=== PATIENT | male | born 1960 | race Caucasian/White ===

== ENCOUNTER 2020-09-27 07:30 | Outpatient (REF) | payer OTHER, SELFPAY ==
[2020-09-27 10:08] LABS: Appearance Urine CLEAR; Color Urine YELLOW; Glucose Urine UA NEG (NEG); Leukocyte Esterase Urine NEG (NEG); Nitrite Urine NEG (NEG); Specific Gravity - Urine 1.015 (1.005-1.025); Urine Blood NEG (NEG); Urine Ketones NEG (NEG); Urine Protein NEG (NEG-TRACE)
[2020-09-27 10:34] LABS: Anion Gap 12 (12-20); Blood Urea Nitrogen 17 mg/dL (9-16); Calcium 9.4 mg/dL (8.4-10.2); Carbon Dioxide 25 mmol/L (22-29); Chloride 107 mmol/L (96-108); Estimated Glomerular Filt Rate 60; Sodium 140 mmol/L (135-145); Uric Acid 6.9 mg/dL (3.4-7.0)
== END 2020-09-27 07:31 | disposition home or self-care (01) ==
LOC: HO.10HDL 07:30
PROVIDERS: PCP Pediatrics; Visit Provider Internal Medicine Hypertension Specialist
DX: N20.0 Calculus of kidney (principal); I10 Essential (primary) hypertension
CPT/HCPCS: 36415; 80051; 81003; 82310; 82565; 84520; 84550

== ENCOUNTER 2021-09-08 08:10 | Outpatient (REF) | payer OTHER, SELFPAY ==
[2021-09-08 12:21] LABS: Anion Gap 11 (12-20); Blood Urea Nitrogen 15 mg/dL (9-16); Carbon Dioxide 24 mmol/L (22-29); Chloride 107 mmol/L (96-108); Creatinine Urine 121.27 mg/dL; Estimated Glomerular Filt Rate > 60; Glucose Random 116 mg/dL (60-115); Potassium 3.9 mmol/L (3.3-5.1); Sodium 138 mmol/L (135-145); Total Protein Urine Random < 7 mg/dL (<12)
[2021-09-08 12:31] LABS: Uric Acid 6.4 mg/dL (3.4-7.0)
== END 2021-09-08 08:11 | disposition home or self-care (01) ==
LOC: HO.WFDLDS 08:10
PROVIDERS: Visit Provider Internal Medicine Hypertension Specialist
DX: I10 Essential (primary) hypertension (principal)
CPT/HCPCS: 36415; 80048; 84156; 84550

== ENCOUNTER 2021-10-06 | Outpatient (REF) | payer OTHER, SELFPAY | END 2021-10-06 00:01 | disposition home or self-care (01) | LOC: HO.LNP | PROVIDERS: Visit Provider Internal Medicine Hypertension Specialist | DX: N20.0 Calculus of kidney (principal) | CPT/HCPCS: 88300 ==

== ENCOUNTER 2022-01-09 | Outpatient (REF) | payer OTHER, SELFPAY ==
[2022-01-13 21:01] LABS: Stone Source RENAL STONE
== END 2022-01-09 00:01 | disposition home or self-care (01) ==
LOC: HO.LNP
PROVIDERS: Visit Provider Internal Medicine Hypertension Specialist
DX: N20.0 Calculus of kidney (principal)
CPT/HCPCS: 82365

== ENCOUNTER 2022-03-09 09:29 | Outpatient (REF) | payer OTHER, SELFPAY ==
--- NOTE | ~2022-03-09 | US_ITS ---
EXAMINATION: US RETROPERITONEAL LIMITED (RENAL ONLY) CLINICAL INFORMATION: Renal stone. COMPARISON: Renal ultrasound 12/22/2013. TECHNIQUE: Real-time imaging of the kidneys. FINDINGS: RIGHT KIDNEY: 11.5 x 3.9 x 6.0 cm (SAG x AP x TRV). The kidney is normal in size, contour, and echogenicity. Renal cortical thickness is normal. Small 2 and 3 mm stones in the mid and lower pole. Small 3 x 4 mm cyst exophytic to the midpole. No hydronephrosis. LEFT KIDNEY: 11.5 x 4.6 x 4.3 cm (SAG x AP x TRV). The kidney is normal in size, contour, and echogenicity. Renal cortical thickness is normal. Small 0.8 x 0.6 x 0.5 cm peripelvic cyst in the midpole. No renal calculi or hydronephrosis. US/US renal BI IMPRESSION: Small right renal stones. Small bilateral renal cysts.
== END 2022-03-09 09:30 | disposition home or self-care (01) ==
LOC: HO.US 09:29
PROVIDERS: Visit Provider Internal Medicine Hypertension Specialist
DX: N20.0 Calculus of kidney (principal)
CPT/HCPCS: 76775

== ENCOUNTER → 2022-05-07 14:37 | Outpatient (BNVA) | payer OTHER, SELFPAY | PROVIDERS: PCP Family Medicine; Visit Provider Surgery | DX: K60.3 Anal fistula (principal); K64.8 Other hemorrhoids | CPT/HCPCS: 46600 ==

== ENCOUNTER → 2022-06-01 11:02 | Outpatient (BNVA) | payer OTHER, SELFPAY | PROVIDERS: PCP Family Medicine; Visit Provider Internal Medicine Cardiovascular Disease | DX: Z13.89 Encounter for screening for other disorder (principal) ==

== ENCOUNTER 2022-06-29 06:00 | Day surgery (SDC) | payer OTHER, SELFPAY ==
[2022-05-21 12:28] VITALS: BMI 28.7
--- NOTE | 2022-05-22 | ECG_ITS ---
Test Reason : pre-op Blood Pressure : / mmHG Vent. Rate : 071 BPM Atrial Rate : 071 BPM P-R Int : 138 ms QRS Dur : 140 ms QT Int : 416 ms P-R-T Axes : 038 -44 021 degrees QTc Int : 452 ms Normal sinus rhythm Left axis deviation Right bundle branch block Cannot rule out inferior infarct Abnormal ECG When compared with ECG of 17-MAR-2003 08:23, Premature atrial complexes are no longer Present inferior infarct present Referred By: Dereje Arreola Electronically Signed By:Mode Hardin
[2022-05-22 10:49] LABS: Mean Corpuscular HGB Conc 35.6 g/dl (31.0-36.0); Mean Corpuscular Hemoglobin 32.7 pg (27.0-33.0); Mean Corpuscular Volume 91.8 fL (80.0-98.0); Mean Platelet Volume 10.6 fL (9.4-12.4); Platelet Count 163 X10*3/uL (160-400); Red Cell Distribution Width 11.8 % (11.0-16.0); White Blood Count 5.9 X10*3/uL (4.8-10.8)
[2022-05-22 11:26] LABS: Alanine Aminotransferase 61 U/L (0-40); Albumin Level 4.3 g/dL (3.5-5.0); Alkaline Phosphatase 88 U/L (39-117); Anion Gap 13 (12-20); Aspartate Amino Transferase 39 U/L (5-37); Bilirubin Total 0.7 mg/dL (0.0-1.0); Blood Urea Nitrogen 18 mg/dL (9-16); Calcium 9.6 mg/dL (8.4-10.2); Carbon Dioxide 25 mmol/L (22-29); Chloride 106 mmol/L (96-108); Cholesterol 217 mg/dL; Creatinine Clr Calc Pharmacy 72.8; Estimated Glomerular Filt Rate > 60; Glucose Fasting 109 mg/dL (60-99); HDL Cholesterol 38 mg/dL; LDL Cholesterol Calculated 129 mg/dl; Potassium 4.2 mmol/L (3.3-5.1); Sodium 140 mmol/L (135-145); Total Protein 7.7 g/dL (6.5-8.0); Triglycerides 250 mg/dL
[2022-05-22 11:27] LABS: Anion Gap 13 (12-20); Blood Urea Nitrogen 17 mg/dL (9-16); Calcium 9.6 mg/dL (8.4-10.2); Carbon Dioxide 24 mmol/L (22-29); Chloride 106 mmol/L (96-108); Creatinine Clr Calc Pharmacy 74.1; Estimated Glomerular Filt Rate > 60; Glucose Random 110 mg/dL (60-115); Potassium 4.2 mmol/L (3.3-5.1); Sodium 139 mmol/L (135-145)
[2022-05-22 11:45] LABS: Appearance Urine Clear; Color Urine Yellow; Glucose Urine UA Negative (Negative); Leukocyte Esterase Urine Negative (Negative); Nitrite Urine Negative (Negative); Prostate Specific Antigen Scr 2.05 ng/mL (<0.05-4.0); Specific Gravity - Urine 1.015 (1.005-1.025); TSH reflex Free T4 1.56 uIU/mL (0.32-4.0); Urine Blood Negative (Negative); Urine Ketones Negative (Negative); Urine Protein Negative (Neg-Trace)
[2022-05-22 13:34] LABS: Creatinine Urine 107.94 mg/dL; Microalbum/Creatinine Ratio Ur 42.6 ug/mg cr
--- NOTE | 2022-06-28 09:18 | P.CONAN_ITS ---
Documented by User: Nichelle Penn NP 06/28/22 13:13 HPI - Anesthesia Eval Consult details Narrative: 62yo M for Hemorrhoidectomy, Exam Under Anesthesia Cardiac optimized for procedure. ECHO and Stress pending for new RBBB. Case reviewed with Dr Arreola. [facility] Active Problems Active Problems: All Active Problems (Updated 05/30/22 @ 13:43 by Primo Delacruz MD) Abnormal ECG (Acute) Right bundle branch block (Acute) Preoperative clearance (Acute) Normal physical examination, routine (Acute) Thrombosed hemorrhoids (Acute) Hemorrhoids with complication (Acute) Anal fistula (Acute) Gout (Acute) Kidney stones (Acute) HTN (hypertension) (Acute) Past Medical History Medical History Anal fistula Anxiety Gout Hemorrhoids with complication HTN (hypertension) Hx of degenerative disc disease Kidney stones Surgical History Surgical History History of back surgery Hx of colonoscopy Hx of lithotripsy Social History Social History Housing: House Are you a primary childcare attendant to a significant other at home: No Do you presently have visiting nurse or other home services: No Patient Tobacco Use Status: Never used Tobacco e-Cigarette/Vaping Use: Never Used Second Hand Smoke Exposure: No Use of substances other than those prescribed or required for medical reasons: No Have you been hit, kicked, punched, or otherwise hurt by someone within the past year? If so, by whom?: No Are you DNR?: No Advance Directives: No Advance Directives Information Provided: Yes Advance Directives on File: No Recently lost weight without trying: No Nutrition Risks: No Nutritional Risk Poor oral hygiene: No Current occupational status: retired Current occupational exposures/hazards: No Cognitive needs: No Hearing needs: No Vision needs: No Meds Allergies Allergy/AdvReac Type Severity Reaction Status Date / Time No Known Allergies Allergy Verified 06/01/22 11:35 Home Medications Medication Instructions Recorded Confirmed Last Taken Type allopurinol 100 mg tablet 100 mg PO DAILY 12/28/21 06/01/22 06/28/22 21:00 History amlodipine 5 mg-benazepril 10 mg 1 cap PO DAILY 0906/01/22 06/28/22 21:00 History capsule Exam Exam Date and Time: June 28, 2022 0918 Height,Weight and Vital Signs: Height 5 ft 10 in Weight 90.718 kg Pertinent Lab Results Pertinent Lab Results: Laboratory Tests 05/22/22 05/22/22 05/22/22 10:30 10:30 10:30 WBC 5.9 RBC 4.90 Hgb 16.0 Hct 45.0 MCV 91.8 MCH 32.7 MCHC 35.6 RDW 11.8 Plt Count 163 MPV 10.6 Absolute Nucleated RBC 0.000 Nucleated RBC % (auto) 0.0 Sodium 139 Potassium 4.2 Chloride 106 Carbon Dioxide 24 Anion Gap 13 BUN 17 H Creatinine 1.14 Estim Creat Clear Calc 74.1 Estimated GFR > 60 Random Glucose 110 Fasting Glucose Uric Acid Calcium 9.6 D Total Bilirubin AST ALT Alkaline Phosphatase Total Protein Albumin Triglycerides Cholesterol LDL Cholesterol, Calc HDL Cholesterol PSA Screen TSH Urine Color Yellow Urine Appearance Clear Urine pH 6.0 Ur Specific [place] 1.015 Urine Protein Negative Urine Glucose (UA) Negative Urine Ketones Negative Urine Blood Negative Urine Nitrite Negative Ur Leukocyte Esterase Negative Urine Creatinine Urine Microalbumin Microalb/Creat Ratio 05/22/22 05/22/22 10:30 10:30 WBC RBC Hgb Hct MCV MCH MCHC RDW Plt Count MPV Absolute Nucleated RBC Nucleated RBC % (auto) Sodium 140 Potassium 4.2 Chloride 106 Carbon Dioxide 25 Anion Gap 13 BUN 18 H Creatinine 1.16 Estim Creat Clear Calc 72.8 Estimated GFR > 60 Random Glucose Fasting Glucose 109 H Uric Acid 6.0 Calcium 9.6 Total Bilirubin 0.7 AST 39 H ALT 61 H Alkaline Phosphatase 88 Total Protein 7.7 Albumin 4.3 Triglycerides 250 Cholesterol 217 LDL Cholesterol, Calc 129 HDL Cholesterol 38 PSA Screen 2.05 TSH 1.56 Urine Color Urine Appearance Urine pH Ur Specific [place] Urine Protein Urine Glucose (UA) Urine Ketones Urine Blood Urine Nitrite Ur Leukocyte Esterase Urine Creatinine 107.94 Urine Microalbumin 46.0 Microalb/Creat Ratio 42.6 Narrative Narrative: EKG 05/2022 Vent. Rate : 071 BPM ? ? Atrial Rate : 071 BPM ?? P-R Int : 138 ms? QRS Dur : 140 ms ? ? QT Int : 416 ms ? ? ? P-R-T Axes : 038 -44 021 degrees ?? QTc Int : 452 ms ? Normal sinus rhythm Left axis deviation Right bundle branch block Cannot rule out inferior infarct Abnormal ECG When compared with ECG of 17-MAR-2003 08:23, Premature atrial complexes are no longer Present inferior infarct present Assessment and Plan Assessment Anesthesia Assessment: Chart Reviewed Documented by User: Nitin Woods MD 06/29/22 08:21 PMFSH Past Medical History Medical History Anal fistula Anxiety Gout Hemorrhoids with complication HTN (hypertension) Hx of degenerative disc disease Kidney stones Family History Family history of problems with anesthesia: No Surgical History Surgical History History of back surgery Hx of colonoscopy Hx of lithotripsy History of Problems with Anesthesia: No Social History Social History Housing: House Are you a primary childcare attendant to a significant other at home: No Do you presently have visiting nurse or other home services: No Patient Tobacco Use Status: Never used Tobacco e-Cigarette/Vaping Use: Never Used Second Hand Smoke Exposure: No Use of substances other than those prescribed or required for medical reasons: No Have you been hit, kicked, punched, or otherwise hurt by someone within the past year? If so, by whom?: No Are you DNR?: No Advance Directives: No Advance Directives Information Provided: Yes Advance Directives on File: No Recently lost weight without trying: No Nutrition Risks: No Nutritional Risk Poor oral hygiene: No Current occupational status: retired Current occupational exposures/hazards: No Cognitive needs: No Hearing needs: No Vision needs: No Meds Allergies Allergy/AdvReac Type Severity Reaction Status Date / Time No Known Allergies Allergy Verified 06/01/22 11:35 Home Medications Medication Instructions Recorded Confirmed Last Taken Type allopurinol 100 mg tablet 100 mg PO DAILY 12/28/21 06/01/22 06/28/22 21:00 History amlodipine 5 mg-benazepril 10 mg 1 cap PO DAILY 12/28/21 06/01/22 06/28/22 21:00 History capsule Exam Airway Mallampati Class: II TM Dist: >3cm Neck ROM: Full Heart: rrr Lungs: cta Assessment and Plan Assessment Anesthesia Assessment: Anesthesia Plan Discussed and Chart Reviewed Final Anesthetic Review Family History of Problems with Anesthesia: No History of Problems with Anesthesia: No NPO: Yes ASA Class: II Final Preanesthetic Review: No Changes in Pt Med Stat, Meds/Allgs Chart Reviewed and Consent Obtained/Reviewed Patient Risk: Intermediate Procedure Risk: Intermediate Anesthetic Plan Anesthetic Plan: GA Disposition: Standard PACU
[2022-06-29] VITALS (9 sets, daily range): BP systolic 128–175; BP diastolic 82–107; PULSE 58–72; RESP 14–19; TEMP 36.1–36.6; O2SAT 96–100
[2022-06-29] MEDS: Lactated Ringers 1,000 ML 100 ML IVCONT (06:38)
--- NOTE | 2022-06-29 08:18 | P.HPSUR_ITS ---
Pre-Procedural Eval Section A Date of Service: 06/29/22 Section B Chief Complaint: Anal fistula,Other hemorrhoids Details of Present Illness: Has had some drainage, and pain for several months now the perianal area Relevant Family History (Specify if Yes): No Relevant Social History: None Present Medications: see Short Stay Collaborative assessment Medical History: Significant History ( history of kidney stones, gout, hypertension) Allergies: Allergies Allergy/AdvReac Type Severity Reaction Status Date / Time No Known Allergies Allergy Verified 06/01/22 11:35 Review of Systems Sugical H&P ROS: Negative: Constitution, Cardiovascular, Respiratory, Lisbet rological, Psychiatric, Hem-Onc, Allergic/Immunologic, Gastrointestinal, Genitourinary, Musculoskeletal, Integumentary, Endocrine and Eyes/Ears/Nose/Throat Exam Surgical H&P Exam: Normal: HEENT, Normal: Heart, Normal: Lungs, Normal: Extremities, Normal: Abdomen, Normal: Skin and Normal: Neurological Exam Comment: questions sinus on the left perianal area also with hemorrhoids, internal and external Plan Diagnosis/Plan: Unchanged I have reviewed the history and physical and performed a pertinent physical examination on my patient. No changes have occurred unless specified. Time Spent With Patient Time: Total time managing care of this patient today ____ minutes.
--- NOTE | 2022-06-29 09:56 | W.PM.OPN ---
Operative Note Operative Note Date of Service: 06/29/22 Narrative: Ppreop diagnosis: Internal external hemorrhoids, anal fistula Postop diagnose: The same Procedure: Exam under anesthesia, placement of seton and hemorrhoidectomy x2 columns surgeon: Ranjan Delarosa MD project construction assistant manager: RANDOLPH Garcia student The patient is a 62-year-old male was had hemorrhoids which she says that been increasingly become more uncomfortable. However, he also dated that recently had been noticing some pain and drainage on the perianal area. Examination in the office revealed hemorrhoidal columns, mix of internal external along with what appeared to be an induration on the left anterior perianal area suggestive of a fistula. He understood the technique of a hemorrhoidectomy and seton placement. He was aware of the risks, benefits, and alternatives. He was brought to the operating room. He was placed in prone jaimee-knife position. The buttocks were retracted with wide tape laterally. The perianal area was prepped draped in thebusual sterile fashion. A surgical time-out was done. The patient received Cefotan 2 g IV preoperatively. I infiltrated the perianal area with lidocaine 1%. Examination of the anal orifice revealed an induration on the left anterior perianal area. There was note of a palpable cord-like induration extending into the anal canal radially. I inserted the Rafi Vega retractor and examined the anal canal circumferentially. There was note of some redness on 1 area of the dentate line radial to the induration on the perianal area and this suggested an internal fistulous opening. there was also note of hemorrhoidal columns, mix of internal and external what appeared to be bulky on the left and right side . I started to apply up probe through the external fistulous opening. I gently passed this until I was able to pass it all way to the internal sinus along the dentate line. I passed a yellow vessel loop as a seton. This was looped around the fistula tract and the loop was closed with a silk 2 0 tie . I then proceeded to do his hemorrhoidectomy. I applied a Sam grasper at the hemorrhoidal column the left to retract this. I made a figure of 8 stitch at the pedicle using a chromic 3-0. I made an incision around this hemorrhoidal column to the perianal skin using a blade 15. I excised this hemorrhoidal column above the plane of the sphincters using Metzenbaum scissors. I closed this incision with a running chromic 3-0 stitch with additional hemostatic security sutures being placed. The same procedure was duplicated on the hemorrhoidal column on the right side. Again this was retracted with a Sam grasper. I made a [id number] stitch at the pedicle. I made an incision around this hemorrhoidal column the perianal skin using blade 15. I excised this with scissors above the plane of sphincters. The incision was closed with a running chromic 3- stitch with additional hemostatic sutures being placed. Once hemostasis was confirmed, I infiltrated the perianal area with Marcaine 0.5% but for postop DILLON. I vision a rolled Gelfoam into the anal canal. The procedure was then completed The patient tolerated procedure well. There were no immediate complications. Initial and final counts of sponges and instruments were correct. Estimated blood loss was about 25 cc. The patient was extubated without difficulty and transferred to recovery room with stable vital signs
== END 2022-06-29 11:40 | disposition home or self-care (01) ==
PROVIDERS: Anesthesiology; PCP Family Medicine; Visit Provider Surgery
PROC: (CPT 46020; principal; 2022-06-29 08:30)
PROC: (CPT 46020; 2022-06-29 08:30)
DX: K60.3 Anal fistula (principal); K64.8 Other hemorrhoids; K64.4 Residual hemorrhoidal skin tags; I10 Essential (primary) hypertension; M10.9 Gout, unspecified; Z79.899 Other long term (current) drug therapy; Z87.442 Personal history of urinary calculi
CPT/HCPCS: 46020; 46260; 36415; 80048; 80053; 80061; 81003; 82043; 84153; 84443; 84550; 85027; 88304; 93005; J0131; J1100; J1885; J2405; J2795

== ENCOUNTER 2022-06-30 14:17 | Emergency (ER) | payer OTHER, SELFPAY ==
--- NOTE | 2022-06-30 14:27 | ED_ITS ---
HPI - General Adult General Chief complaint: Urogenital-Male <RANDOLPH Kowalski - Last Filed: 06/30/22 14:35> Stated complaint: surgery yesterday, diff urinating <RANDOLPH Kowalski - Last Filed: 06/30/22 14:35> Time Seen by Provider: 06/30/22 14:46 <RANDOLPH Kowalski - Last Filed: 06/30/22 14:35> Source: patient and family <Tahmina Lou NP - Last Filed: 06/30/22 16:16> Mode of arrival: ambulatory <Tahmina Lou NP - Last Filed: 06/30/22 16:16> Limitations: no limitations <Tahmina Lou NP - Last Filed: 06/30/22 16:16> History of Present Illness HPI narrative: 62 yo male who is post-op day 1 after having a placement of seton/hemorrhoidectomy x2 by Dr Delarosa with inability to urinate. Feels the need to void but cannot. Last time he voided was 6am. <Tahmina Lou NP - Last Filed: 06/30/22 16:16> Related Data Home medications: Home Medications Medication Instructions Recorded Confirmed allopurinol 100 mg tablet 100 mg PO DAILY 12/28/21 06/01/22 amlodipine 5 mg-benazepril 10 mg 1 cap PO DAILY 12/28/21 06/01/22 capsule Previous Rx's Medication Instructions Recorded docusate sodium 100 mg capsule 100 mg PO BID #60 caps 06/29/22 (Colace) ibuprofen 600 mg tablet 600 mg PO Q6H PRN pain #30 tabs 06/29/22 oxycodone-acetaminophen 5 mg-325 1 tab PO Q4-6H PRN pain #30 tabs 06/29/22 mg tablet (Percocet) tamsulosin 0.4 mg capsule (Flomax) 0.4 mg PO DAILY #30 caps 06/30/22 <RANDOLPH Kowalski - Last Filed: 06/30/22 14:35> Allergies/adverse reactions: Allergies Allergy/AdvReac Type Severity Reaction Status Date / Time No Known Allergies Allergy Verified 06/01/22 11:35 <RANDOLPH Kowalski - Last Filed: 06/30/22 14:35> Review of Systems Review of Systems: Yes all other systems are reviewed and are negative <Tahmina Lou NP - Last Filed: 06/30/22 16:16> Constitutional: Constitutional: Reports no additional constitutional complaints, Denies body ache(s), Denies chills, Denies fever(s), Denies headache(s) and Denies weakness <Tahmina Lou RAILWAY TRACK WORKER - Last Filed: 06/30/22 16:16> Eyes: Eyes: Reports no additional eye complaints and Denies change in vision <Tahmina Lou RAILWAY TRACK WORKER - Last Filed: 06/30/22 16:16> ENT: Reports system reviewed and no additional complaints, except as documented, Denies dizziness, Denies headache(s), Denies nasal congestion, Denies nasal discharge and Denies neck pain <Tahmina Lou NP - Last Filed: 06/30/22 16:16> Cardiovascular: Cardiovascular: Reports no additional cardiovascular complaints, Denies chest pain, Denies leg edema and Denies dyspnea <Tahmina Lou RAILWAY TRACK WORKER - Last Filed: 06/30/22 16:16> Respiratory: Respiratory: Reports no additional respiratory complaints, Denies cough and Denies dyspnea <Tahmina Lou NP - Last Filed: 06/30/22 16:16> Gastrointestinal: Gastrointestinal: Reports no additional gastrointestinal complaints, Denies abdominal pain, Denies diarrhea, Denies nausea and Denies vomiting <Tahmina Lou NP - Last Filed: 06/30/22 16:16> Genitourinary: Genitourinary: Reports difficulty urinating and Denies urinary incontinence <Tahmina Lou RAILWAY TRACK WORKER - Last Filed: 06/30/22 16:16> Musculoskeletal: Musculoskeletal: Reports no additional musculoskeletal complaints, Denies back pain, Denies arthralgias, Denies joint swelling, Denies neck pain, Denies numbness and Denies tingling <Tahmina Lou NP - Last Filed: 06/30/22 16:16> Integumentary/Breasts: Skin/Breast: Reports system reviewed and no additional complaints, except as docu and Denies rash <Tahmina Lou NP - Last Filed: 06/30/22 16:16> Neurologic: Reports system reviewed and no additional complaints, except as documented, Denies dizziness, Denies headache(s), Denies numbness, Denies tingling and Denies weakness <Tahmina Lou NP - Last Filed: 06/30/22 16:16> PMFSH Past Medical History Attestation statement: The following information was validated with the patient. <Tahmina Lou NP - Last Filed: 06/30/22 16:16> Source: old records reviewed and nursing notes reviewed <Tahmina Lou NP - Last Filed: 06/30/22 16:16> Medical History: Medical History Anal fistula Anxiety Gout Hemorrhoids with complication HTN (hypertension) Hx of degenerative disc disease Kidney stones <RANDOLPH Kowalski - Last Filed: 06/30/22 14:35> Surgical History: Surgical History History of back surgery Hx of colonoscopy Hx of lithotripsy <RANDOLPH Kowalski - Last Filed: 06/30/22 14:35> Social History Social History: Social History Housing: House Are you a primary healthcare advisory services manager to a significant other at home: No Do you presently have visiting nurse or other home services: No Alcohol intake: never Patient Tobacco Use Status: Never used Tobacco Smoked in Last 30 Days: No e-Cigarette/Vaping Use: Never Used Second Hand Smoke Exposure: No Use of substances other than those prescribed or required for medical reasons: No Advance Directives: No Advance Directives Information Provided: Yes Current occupational status: retired Current occupational exposures/hazards: No Cognitive needs: No Hearing needs: No Vision needs: No <RANDOLPH Kowalski - Last Filed: 06/30/22 14:35> Physical Exam ED Vital Signs: Vital Signs - 24 hr 06/30/22 14:34 Temperature 97.9 F Pulse Rate 76 Respiratory Rate 18 Pulse Oximetry 100 Oxygen Delivery Method Room Air BMI result Body Mass Index 28.7 <Roberta Velazcoiot, PA - Last Filed: 06/30/22 14:35> Vital Signs - 24 hr 06/30/22 14:34 Temperature 97.9 F Pulse Rate 76 Respiratory Rate 18 Pulse Oximetry 100 Oxygen Delivery Method Room Air BMI result Body Mass Index 28.7 <Tahmina Lou NP - Last Filed: 06/30/22 16:16> Const Other: In pain <Tahmina Lou NP - Last Filed: 06/30/22 16:16> General: alert <Tahmina Lou RAILWAY TRACK WORKER - Last Filed: 06/30/22 16:16> Orientation/consciousness: patient oriented x3 <Tahmina Lou NP - Last Filed: 06/30/22 16:16> Limitations: no limitations <Tahmina Lou RAILWAY TRACK WORKER - Last Filed: 06/30/22 16:16> HENMT Head: Yes normal to inspection <Tahmina Lou NP - Last Filed: 06/30/22 16:16> Ears: hearing grossly normal bilaterally <Tahmina Lou RAILWAY TRACK WORKER - Last Filed: 06/30/22 16:16> Eyes General: appearance normal, both eyes and all related structures <Tahmina Lou NP - Last Filed: 06/30/22 16:16> Pupils: Equal, round and reactive pupils present <Tahmina Lou NP - Last Filed: 06/30/22 16:16> Neck Neck: Yes normal visual inspection and Yes full ROM <Tahmina Lou NP - Last Filed: 06/30/22 16:16> Chest Chest palpation & inspection: normal inspection of the chest <Tahmina Lou NP - Last Filed: 06/30/22 16:16> Resp Effort & Inspection: normal respiratory effort <Tahmina Lou NP - Last Filed: 06/30/22 16:16> Auscultation: clear to auscultation bilaterally <Tahmina Lou NP - Last Filed: 06/30/22 16:16> Cardio Rate: regular rate <Tahmina Lou NP - Last Filed: 06/30/22 16:16> Rhythm: regular rhythm <Tahmina Berryrita, RAILWAY TRACK WORKER - Last Filed: 06/30/22 16:16> Peripheral pulses: Peripheral pulses 2+ throughout <Tahmina Ulisesvaldo, RAILWAY TRACK WORKER - Last Filed: 06/30/22 16:16> GI Other: Bladder is distended <Tahminageovany Lou, RAILWAY TRACK WORKER - Last Filed: 06/30/22 16:16> Inspection: Yes normal to inspection <Tahminageovany Lou, RAILWAY TRACK WORKER - Last Filed: 06/30/22 16: 16> General: Yes no CVA tenderness <Tahmina Ulisesvaldo, RAILWAY TRACK WORKER - Last Filed: 06/30/22 16:16> Back/Spine/Pelvis Back: no CVA tenderness <Tahmina Dasha, RAILWAY TRACK WORKER - Last Filed: 06/30/22 16:16> Thoracic/Lumbar Spine: thoracic and lumbar spine normal to inspection <Tahminageovany Lou, RAILWAY TRACK WORKER - Last Filed: 06/30/22 16:16> Skin General skin exam: no rashes or lesions noted <Tahmina Ulisesvaldo, RAILWAY TRACK WORKER - Last Filed: 06/30/22 16:16> Neuro General: patient oriented x3 and moves all extremities <Tahminageovany Lou, RAILWAY TRACK WORKER - Last Filed: 06/30/22 16:16> Cranial nerves: Yes Equal, round and reactive pupils present <Tahmina Ulisesvaldo, RAILWAY TRACK WORKER - Last Filed: 06/30/22 16:16> Cognition (Neuro): normal cognition <Tahminageovany Lou, RAILWAY TRACK WORKER - Last Filed: 06/30/22 16:16> Gait exam (Neuro): Normal gait present <Tahminageovany Lou, RAILWAY TRACK WORKER - Last Filed: 06/30/22 16:16> Extrem General: Yes normal to inspection <Tahminageovany Lou, RAILWAY TRACK WORKER - Last Filed: 06/30/22 16:16> Course Course Course Narrative: RME--62yo M w/PMHx Gout, anxiety, HTN, renal stones, hemorrhoids s/p seton placement and hemorrhoidectomy yesterday 06/[address] Delarosa c/o abdominal discomfort, urinary retention and constipation since 6:30AM. Feels urge to urinate and defecate w/o relief. Admits to some rectal bleeding since procedure with small residue passed this AM. Denies N/V 770cc on bladder scan in triage, patient uncomfortable Charge nurse aware labs, UA, connolly cateher ordered <RANDOLPH Kowalski - Last Filed: 06/30/22 14:35> Reevaluation(s) Reevaluation #1: Patient had a Connolly catheter placed with greater than 800 of urine output immediately with significant improvement in his discomfort. UA shows no signs of infection. Labs are unremarkable. Patient will discharge home with Connolly catheter and Flomax daily. Recommend he continue to follow-up with outpatient surgery as well as Urology. <Tahmina Lou NP - Last Filed: 06/30/22 16:16> Medical Decision Making Medical Decision Making [facility] Narrative: 62-year-old male who is postop day 1 from a hemorrhoidectomy and fistula repair presents with inability to urinate since 06:00. Bladder scan shows >700ml urine Will place connolly catheter, check UA, labs <Tahmina Lou NP - Last Filed: 16:16> Differential Diagnosis Differential Diagnoses: The differential diagnosis associated with the presentation includes <Tahmina Lou NP - Last Filed: 06/30/22 16:16> Post operative retention, UTI, [place] <Tahmina Lou NP - Last Filed: 06/30/22 16:16> Lab Data [facility] Lab Attestation statement: I reviewed the patient's lab results. <Tahmina Lou NP - Last Filed: 06/30/22 16:16> Result Diagrams: 06/30/22 15:26 06/30/22 15:26 <RANDOLPH Kowalski - Last Filed: 06/30/22 14:35> Labs: Lab Results 06/30/22 06/30/22 06/30/22 Range/Units 15:26 15:26 15:26 WBC 12.8 H (4.8-10.8) X10*3/uL RBC 4.61 (4.60-5.80) X10*6/uL Hgb 15.2 (14.0-18.0) g/dl Hct 42.2 (42.0-52.0) % MCV 91.5 (80.0-98.0) fL MCH 33.0 (27.0-33.0) pg MCHC 36.0 (31.0-36.0) g/dl RDW 12.1 (11.0-16.0) % Plt Count 140 L (160-400) X10*3/uL MPV 10.8 (9.4-12.4) fL Immature Gran % (Auto) 0.6 H (0.0-0.4) % Neut % (Auto) 81.4 H (45-73) % Lymph % (Auto) 10.4 L (20-40) % Frontier % (Auto) 7.3 (2-11) % Eos % (Auto) 0.2 (0-4) % Baso % (Auto) 0.1 (0-2) % Lymph # (Auto) 1.3 (1.2-4.9) X10*3/uL Frontier # (Auto) 0.9 (0.1-1.2) X10*3/uL Eos # (Auto) 0.0 (0.0-0.4) X10*3/uL Baso # (Auto) 0.0 (0.0-0.2) X10*3/uL Abs Immat Gran (auto) 0.08 H (0.00-0.03) X10*3/uL Absolute Neuts (auto) 10.4 H (2.0-8.3) x10*3/uL Absolute Nucleated RBC 0.000 (0.0-0.012) X10*3/uL Nucleated RBC % (auto) 0.0 (0.0-0.2) /100WBC Sodium 140 (135-145) mmol/L Potassium 4.0 (3.3-5.1) mmol/L Chloride 104 (96-108) mmol/L Carbon Dioxide 24 (22-29) mmol/L Anion Gap 16 (12-20) BUN 20 H (9-16) mg/dL Creatinine 1.28 (0.5-1.4) mg/dL Estim Creat Clear Calc 66.0 Estimated GFR 57 Random Glucose 120 H (60-115) mg/dL Calcium 9.0 D (8.4-10.2) mg/dL Magnesium 1.8 (1.6-2.6) mg/dL Total Bilirubin 1.0 (0.0-1.0) mg/dL Direct Bilirubin 0.2 (0.0-0.5) mg/dL AST 36 (5-37) U/L ALT 57 H (0-40) U/L Alkaline Phosphatase 81 (39-117) U/L Total Protein 7.5 (6.5-8.0) g/dL Albumin 4.3 (3.5-5.0) g/dL Lipase 14 (8-78) U/L Urine Color Urine Appearance Urine pH (5.0-9.0) Ur Specific Parshall (1.005-1.025) Urine Protein (Neg-Trace) mg/dL Urine Glucose (UA) (Negative) mg/dL Urine Ketones (Negative) mg/dL Urine Blood (Negative) Urine Nitrite (Negative) Ur Leukocyte Esterase (Negative) COVID-19 ([facility]) Negative (Negative) COVID-19 Clin Com See Note 06/30/22 Range/Units 15:26 WBC (4.8-10.8) X10*3/uL RBC (4.60-5.80) X10*6/uL Hgb (14.0-18.0) g/dl Hct (42.0-52.0) % MCV (80.0-98.0) fL MCH (27.0-33.0) pg MCHC (31.0-36.0) g/dl RDW (11.0-16.0) % Plt Count (160-400) X10*3/uL MPV (9.4-12.4) fL Immature Gran % (Auto) (0.0-0.4) % Neut % (Auto) (45-73) % Lymph % (Auto) (20-40) % Frontier % (Auto) (2-11) % Eos % (Auto) (0-4) % Baso % (Auto) (0-2) % Lymph # (Auto) (1.2-4.9) X10*3/uL Frontier # (Auto) (0.1-1.2) X10*3/uL Eos # (Auto) (0.0-0.4) X10*3/uL Baso # (Auto) (0.0-0.2) X10*3/uL Abs Immat Gran (auto) (0.00-0.03) X10*3/uL Absolute Neuts (auto) (2.0-8.3) x10*3/uL Absolute Nucleated RBC (0.0-0.012) X10*3/uL Nucleated RBC % (auto) (0.0-0.2) /100WBC Sodium (135-145) mmol/L Potassium (3.3-5.1) mmol/L Chloride (96-108) mmol/L Carbon Dioxide (22-29) mmol/L Anion Gap (12-20) BUN (9-16) mg/dL Creatinine (0.5-1.4) mg/dL Estim Creat Clear Calc Estimated GFR Random Glucose (60-115) mg/dL Calcium (8.4-10.2) mg/dL Magnesium (1.6-2.6) mg/dL Total Bilirubin (0.0-1.0) mg/dL Direct Bilirubin (0.0-0.5) mg/dL AST (5-37) U/L ALT (0-40) U/L Alkaline Phosphatase (39-117) U/L Total Protein (6.5-8.0) g/dL Albumin (3.5-5.0) g/dL Lipase (8-78) U/L Urine Color Yellow Urine Appearance Clear Urine pH 6.0 (5.0-9.0) Ur Specific Parshall 1.015 (1.005-1.025) Urine Protein Negative (Neg-Trace) mg/dL Urine Glucose (UA) Negative (Negative) mg/dL Urine Ketones Negative (Negative) mg/dL Urine Blood Negative (Negative) Urine Nitrite Negative (Negative) Ur Leukocyte Esterase Negative (Negative) COVID-19 ([facility]) (Negative) COVID-19 Clin Com <RANDOLPH Kowalski - Last Filed: 06/30/22 14:35> Lab Results 06/30/22 06/30/22 06/30/22 Range/Units 15:26 15:26 15:26 WBC 12.8 H (4.8-10.8) X10*3/uL RBC 4.61 (4.60-5.80) X10*6/uL Hgb 15.2 (14.0-18.0) g/dl Hct 42.2 (42.0-52.0) % MCV 91.5 (80.0-98.0) fL MCH 33.0 (27.0-33.0) pg MCHC 36.0 (31.0-36.0) g/dl RDW 12.1 (11.0-16.0) % Plt Count 140 L (160-400) X10*3/uL MPV 10.8 (9.4-12.4) fL Immature Gran % (Auto) 0.6 H (0.0-0.4) % Neut % (Auto) 81.4 H (45-73) % Lymph % (Auto) 10.4 L (20-40) % Frontier % (Auto) 7.3 (2-11) % Eos % (Auto) 0.2 (0-4) % Baso % (Auto) 0.1 (0-2) % Lymph # (Auto) 1.3 (1.2-4.9) X10*3/uL Frontier # (Auto) 0.9 (0.1-1.2) X10*3/uL Eos # (Auto) 0.0 (0.0-0.4) X10*3/uL Baso # (Auto) 0.0 (0.0-0.2) X10*3/uL Abs Immat Gran (auto) 0.08 H (0.00-0.03) X10*3/uL Absolute Neuts (auto) 10.4 H (2.0-8.3) x10*3/uL Absolute Nucleated RBC 0.000 (0.0-0.012) X10*3/uL Nucleated RBC % (auto) 0.0 (0.0-0.2) /100WBC Sodium 140 (135-145) mmol/L Potassium 4.0 (3.3-5.1) mmol/L Chloride 104 (96-108) mmol/L Carbon Dioxide 24 (22-29) mmol/L Anion Gap 16 (12-20) BUN 20 H (9-16) mg/dL Creatinine 1.28 (0.5-1.4) mg/dL Estim Creat Clear Calc 66.0 Estimated GFR 57 Random Glucose 120 H (60-115) mg/dL Calcium 9.0 D (8.4-10.2) mg/dL Magnesium 1.8 (1.6-2.6) mg/dL Total Bilirubin 1.0 (0.0-1.0) mg/dL Direct Bilirubin 0.2 (0.0-0.5) mg/dL AST 36 (5-37) U/L ALT 57 H (0-40) U/L Alkaline Phosphatase 81 (39-117) U/L Total Protein 7.5 (6.5-8.0) g/dL Albumin 4.3 (3.5-5.0) g/dL Lipase 14 (8-78) U/L Urine Color Urine Appearance Urine pH (5.0-9.0) Ur Specific Parshall (1.005-1.025) Urine Protein (Neg-Trace) mg/dL Urine Glucose (UA) (Negative) mg/dL Urine Ketones (Negative) mg/dL Urine Blood (Negative) Urine Nitrite (Negative) Ur Leukocyte Esterase (Negative) COVID-19 ([facility]) Negative (Negative) COVID-19 Clin Com See Note 06/30/22 Range/Units 15:26 WBC (4.8-10.8) X10*3/uL RBC (4.60-5.80) X10*6/uL Hgb (14.0-18.0) g/dl Hct (42.0-52.0) % MCV (80.0-98.0) fL MCH (27.0-33.0) pg MCHC (31.0-36.0) g/dl RDW (11.0-16.0) % Plt Count (160-400) X10*3/uL MPV (9.4-12.4) fL Immature Gran % (Auto) (0.0-0.4) % Neut % (Auto) (45-73) % Lymph % (Auto) (20-40) % Frontier % (Auto) (2-11) % Eos % (Auto) (0-4) % Baso % (Auto) (0-2) % Lymph # (Auto) (1.2-4.9) X10*3/uL Frontier # (Auto) (0.1-1.2) X10*3/uL Eos # (Auto) (0.0-0.4) X10*3/uL Baso # (Auto) (0.0-0.2) X10*3/uL Abs Immat Gran (auto) (0.00-0.03) X10*3/uL Absolute Neuts (auto) (2.0-8.3) x10*3/uL Absolute Nucleated RBC (0.0-0.012) X10*3/uL Nucleated RBC % (auto) (0.0-0.2) /100WBC Sodium (135-145) mmol/L Potassium (3.3-5.1) mmol/L Chloride (96-108) mmol/L Carbon Dioxide (22-29) mmol/L Anion Gap (12-20) BUN (9-16) mg/dL Creatinine (0.5-1.4) mg/dL Estim Creat Clear Calc Estimated GFR Random Glucose (60-115) mg/dL Calcium (8.4-10.2) mg/dL Magnesium (1.6-2.6) mg/dL Total Bilirubin (0.0-1.0) mg/dL Direct Bilirubin (0.0-0.5) mg/dL AST (5-37) U/L ALT (0-40) U/L Alkaline Phosphatase (39-117) U/L Total Protein (6.5-8.0) g/dL Albumin (3.5-5.0) g/dL Lipase (8-78) U/L Urine Color Yellow Urine Appearance Clear Urine pH 6.0 (5.0-9.0) Ur Specific Parshall 1.015 (1.005-1.025) Urine Protein Negative (Neg-Trace) mg/dL Urine Glucose (UA) Negative (Negative) mg/dL Urine Ketones Negative (Negative) mg/dL Urine Blood Negative (Negative) Urine Nitrite Negative (Negative) Ur Leukocyte Esterase Negative (Negative) COVID-19 ([facility]) (Negative) COVID-19 Clin Com <Tahmina Lou NP - Last Filed: 06/30/22 16:16> Independent Historian Clinical information obtained from an independent historian. History obtained from or confirmed by: Spouse <Tahmina Lou NP - Last Filed: 06/30/22 16:16> Discharge Plan Discharge Clinical Impression: Acute retention of urine <RANDOLPH Kowalski - Last Filed: 06/30/22 14:35> Patient Disposition: Home, Self-Care <RANDOLPH Kowalski - Last Filed: 06/30/22 14:35> Instructions: Urinary Retention in Men (ED), Connolly Catheter Placement and Care (ED) <RANDOLPH Kowalski - Last Filed: 06/30/22 14:35> Additional Instructions: Follow-up with your surgeon as scheduled Follow-up with urology Make sure you are drinking plenty of fluid Take the Flomax as prescribed Your kidney function is normal. Your urine shows no signs of infection. <RANDOLPH Kowalski - Last Filed: 06/30/22 14:35> Prescriptions: New tamsulosin [Flomax] 0.4 mg capsule 0.4 mg PO DAILY Qty: 30 0RF No Action oxycodone-acetaminophen [Percocet] 5-325 mg tablet 1 tab PO Q4-6H PRN (Reason: pain) Qty: 30 0RF Rx Instructions: Partial Fill upon patient request. docusate sodium [Colace] 100 mg capsule 100 mg PO BID Qty: 60 2RF ibuprofen 600 mg tablet 600 mg PO Q6H PRN (Reason: pain) Qty: 30 0RF amlodipine-benazepril 5-10 mg capsule 1 cap PO DAILY allopurinol 100 mg tablet 100 mg PO DAILY <RANDOLPH Kowalski - Last Filed: 06/30/22 14:35> Referrals: Nneka Alvarado MD [Physician] - 1 week <RANDOLPH Kowalski - Last Filed: 06/30/22 14:35>
[2022-06-30 14:34] VITALS: PULSE 76; RESP 18; TEMP 36.6; O2SAT 100; BMI 28.7
--- NOTE | 2022-06-30 15:15 | PC.NURSE ---
Torres catheter placed approximately 750ml originally came out of catheter when placed. Patient stated immediate relief of urinary symptoms.
[2022-06-30 15:35] LABS: Appearance Urine Clear; Color Urine Yellow; Glucose Urine UA Negative (Negative); Leukocyte Esterase Urine Negative (Negative); Nitrite Urine Negative (Negative); Specific Gravity - Urine 1.015 (1.005-1.025); Urine Blood Negative (Negative); Urine Ketones Negative (Negative); Urine Protein Negative (Neg-Trace)
[2022-06-30 15:43] LABS: Hematocrit 42.2 % (42.0-52.0); Hemoglobin 15.2 g/dl (14.0-18.0); Imm Gran Abs Auto 0.08 X10*3/uL (0.00-0.03); Imm Gran Pct Auto 0.6 % (0.0-0.4); PLT CLUMP 1; Red Cell Distribution Width 12.1 % (11.0-16.0); SCAN SMEAR FLAG 1
[2022-06-30 15:45] LABS: Basophils Percent Auto 0.1 % (0-2); Eosinophils Percent Auto 0.2 % (0-4); Lymphocytes Absolute Auto 1.3 X10*3/uL (1.2-4.9); Lymphocytes Percent Auto 10.4 % (20-40); Mean Corpuscular Volume 91.5 fL (80.0-98.0); Mean Platelet Volume 10.8 fL (9.4-12.4); Monocytes Absolute Auto 0.9 X10*3/uL (0.1-1.2); Monocytes Percent Auto 7.3 % (2-11); Neutrophils Absolute Auto 10.4 x10*3/uL (2.0-8.3); Neutrophils Percent Auto 81.4 % (45-73); Red Blood Count 4.61 X10*6/uL (4.60-5.80)
[2022-06-30 15:46] LABS: COVID-19 Test Negative (Negative); IDNOW Serial# 9DB6401D
[2022-06-30 15:51] LABS: White Blood Count 12.8 X10*3/uL (4.8-10.8)
[2022-06-30 15:52] LABS: MANUAL DIFF FLAG NO; Platelet Count 140 X10*3/uL (160-400)
[2022-06-30 15:56] LABS: Alanine Aminotransferase 57 U/L (0-40); Albumin Level 4.3 g/dL (3.5-5.0); Alkaline Phosphatase 81 U/L (39-117); Anion Gap 16 (12-20); Aspartate Amino Transferase 36 U/L (5-37); Bilirubin Direct 0.2 mg/dL (0.0-0.5); Blood Urea Nitrogen 20 mg/dL (9-16); Carbon Dioxide 24 mmol/L (22-29); Chloride 104 mmol/L (96-108); Estimated Glomerular Filt Rate 57; Glucose Random 120 mg/dL (60-115); Lipase 14 U/L (8-78); Magnesium 1.8 mg/dL (1.6-2.6); Sodium 140 mmol/L (135-145); Total Protein 7.5 g/dL (6.5-8.0)
== END 2022-06-30 16:44 | disposition home or self-care (01) ==
PROVIDERS: Physician Assistant; Emergency Provider Emergency Medicine; PCP Family Medicine
DX: R33.9 Retention of urine, unspecified (principal); I10 Essential (primary) hypertension; Z20.822 Contact with and (suspected) exposure to COVID-19; Z79.899 Other long term (current) drug therapy
CPT/HCPCS: 36415; 51702; 51798; 80048; 80076; 81003; 83690; 83735; 85025; 87635; 99284

== ENCOUNTER → 2022-07-12 14:33 | Outpatient (BNVA) | payer OTHER, SELFPAY | PROVIDERS: PCP Family Medicine; Visit Provider Surgery | DX: Z13.89 Encounter for screening for other disorder (principal) ==

== ENCOUNTER → 2022-07-30 08:46 | Outpatient (REF) | payer OTHER, SELFPAY ==
--- NOTE | 2022-07-30 08:48 | CA_ITS ---
Transthoracic Echocardiogram Patient (Last, First, Middle): Jorge Soares, Gender: Male Date of : 1960 Age: 62 Procedure Date: 07/30/2022 Procedure Type: Transthoracic Echocardiogram Location: OP Height: 177.8 cm Weight: 90.72 kg BSA: 2.09 m2 Heart Rate: bpm BP: 145 / 95 mmHg Printing Machinist: JANUARY Referring MD: Sandeep Harris MD Symptoms: I45.10 - Unspecified right bundle-branch block Study Quality: Fair ECG Rhythm: Sinus Conclusions: - Estimated LVEF 50-60%. Difficult to accurately quantify, due to limited endocardial definition. - LV peak GLS -16.3%, but possible underestimation. - There is mild calcification of the aortic valve. - No obvious valvular pathology seen on this study. Findings Left Ventricle Normal left ventricular cavity size. There is normal left ventricular wall thickness. The left ventricular systolic function is normal. There is no evidence of regional wall motion abnormalities. Diastolic function is normal for age. Estimated LVEF 50-60%. Difficult to accurately quantify, due to limited endocardial definition. LV peak GLS -16.3%, but possible underestimation. Right Ventricle Normal right ventricular cavity size and systolic function. Atria Both atria are normal in size. Aortic Valve There is a normal trileaflet aortic valve. There is mild calcification of the aortic valve. There is no aortic valve stenosis. There is no aortic valve regurgitation. Mitral Valve The mitral valve appears normal. There is trace mitral valve regurgitation. There is no mitral valve stenosis. Pulmonic Valve The pulmonic valve is likely normal. Tricuspid Valve There is no tricuspid valve regurgitation. There is no evidence of pulmonary hypertension. Great Vessels The asc aorta is normal in size. Venous The inferior vena cava is normal in size and collapses greater than 50% with inspiration. Pericardium/Pleural There is no evidence of pericardial effusion. Prior Study Comparison No prior study available for comparison. Recommendations, Care & Conclusions No obvious valvular pathology seen on this study. Measurements 2D Linear Measurements IVSd: 1.00 0.6-0.9/0.6-1.0 cm LVIDd: 4.55 3.9-5.3/4.2-5.9 cm LVIDd Index: 2.18 2.4-3.2/2.2-3.1 cm/m2 LVIDs: 2.30 2.0-3.6 cm LVPWd: 1.10 0.7-1.1 cm LA Diam: 3.30 2.7-3.8/3.0-4.0 cm LAIDs Index: 1.58 1.5-2.3 cm/m2 LV Mass: 207.88 67-162/88-224 g LV Mass Index: 99.46 43-95/49-115 g/m2 LVOT Diam: 2.30 3.0+(-)1.3 cm 2D Systolic Function EF 4C: 65.10 >55% EF 2C: 53.30 >55% EF BiP: 59.10 >55% Mitral Valve MV Pk E: 0.50 MV PK A: 0.65 MV Decel Time: 340.00 E/A: 0.80 E'Lateral: 6.53 E'Medial: 4.24 E/E' Med: 11.70 E/E' Lat: 7.60 PHT: 100.00 MVA PHT: 2.20 Decel Sutton: 1.46 Aortic Valve AoV Pk Marcus: 1.26 AoV Mn Marcus: 0.94 AoV VTI: 0.26 AoV Pk Grad: 6.00 Aov Mn Grad: 4.00 SELINA Cont.VTI: 2.49 LVOT LVOT Pk Marcus: 0.82 LVOT Mn Marcus: 0.53 LVOT VTI: 0.16 LVOT Pk Grad: 3.00 LVOT Mn Grad: 1.00 LVOT Diam: 2.30 LVOT Area: 4.15 Diastolic Function MV Pk E: 0.50 MV Pk A: 0.65 E/A: 0.80 E'Medial: 4.24 E/E' Med: 11.70 E' Laterial: 6.53 E/E' Lat: 7.60 Right Ventricle TAPSE (mm): 20.30 TVS' Marcus: 10.70 Tricuspid Valve RA Press: 3.00 Great Vessels Aorta Sinus of Valsalva: 3.47 2.0-3.[address] Ridge: 2.35 1.7-3.4 cm Ao Asc: 3.60 2.1-3.4 cm Updated in Other Vendor System with Status of Final Alessandro Mustafa MD electronically signed on 07/30/2022 1:20:12 PM with status of Final
== END ==
LOC: HO.CARD 08:46
PROVIDERS: PCP Family Medicine; Visit Provider Internal Medicine Cardiovascular Disease
DX: I45.10 Unspecified right bundle-branch block (principal)
CPT/HCPCS: 93306; 93356

== ENCOUNTER → 2022-08-27 12:49 | Outpatient (BNVA) | payer OTHER, SELFPAY | PROVIDERS: PCP Family Medicine; Visit Provider Surgery ==

== ENCOUNTER → 2022-08-29 14:38 | Outpatient (BNVA) | payer OTHER, SELFPAY | PROVIDERS: PCP Family Medicine; Visit Provider Surgery ==

== ENCOUNTER → 2022-09-26 10:58 | Outpatient (BNVA) | payer OTHER, SELFPAY | PROVIDERS: Visit Provider Surgery ==

== ENCOUNTER 2022-10-24 08:45 | Outpatient (AMB) | payer OTHER, SELFPAY ==
[2022-10-24 08:51] VITALS: BMI 29.0
--- NOTE | 2022-10-24 08:51 | MHC.OFFVIS ---
Intake Vital Signs 10/24/22 08:51 Height 5 ft 10 in Weight 202 lb BMI 29.0 Intake Visit Reasons: anal fistula with a seton in place, 1 mo follow up Intake Note: This patient presents for a one month follow-up for seton. Patient denies complaints at this time. Drainman Required: No Accompanied by: Other Relationship Allergies No Known Allergies Allergy (Verified 10/24/22 08:52) Medication List - Last Reconciled 10/24/22 by Ranjan Delarosa MD allopurinol 100 mg PO DAILY amlodipine-benazepril 5-10 mg 1 cap PO DAILY docusate sodium (Colace) 100 mg PO BID ibuprofen 600 mg PO Q6H PRN oxycodone-acetaminophen 5-325 mg (Percocet) 1 tab PO Q4-6H PRN tamsulosin (Flomax) 0.4 mg PO DAILY HPI anal fistula with a seton in place, 1 mo follow up HPI Details He is here for follow-up for his anal fistula with a seton in place. He feels well and denies any new complaints. He describes some occasional scanty drainage from the area. He denies any new induration. [facility] Medical History Anal fistula Anxiety Gout Hemorrhoids with complication HTN (hypertension) Hx of degenerative disc disease Kidney stones Surgical History H/O hemorrhoidectomy (06/29/22) History of back surgery Hx of colonoscopy Hx of lithotripsy Social History Housing: House Are you a primary long term care administrator to a significant other at home: No Do you presently have visiting nurse or other home services: No Alcohol intake: never Patient Tobacco Use Status: Never used Tobacco e-Cigarette/Vaping Use: Never Used Second Hand Smoke Exposure: No Current occupational status: retired Current occupational exposures/hazards: No Cognitive needs: No Hearing needs: No Vision needs: No Review of Systems Const Denies chills and Denies fever(s) Card Denies chest pain, Denies dyspnea and Denies dyspnea on exertion Resp Denies cough, Denies dyspnea and Denies dyspnea on exertion GI Denies hematochezia and Denies change in bowel habits Denies hematuria and Denies difficulty urinating Musc Denies back pain and Denies limited range of motion Neuro Denies focal weakness and Denies convulsions Psych Denies depression and Denies mood swings Physical Exam Vital Signs: BMI result Body Mass Index 29.0 Const General: comfortable and no acute distress Resp Effort & Inspection: normal respiratory effort Cardio Rate: regular rate GI Other: Rectal exam - seton in place on the left with very short residual fistula tract, no new induration, no new sinus no active drainage Assessment & Plan Assessment & Plan (1) Anal fistula: Code(s): K60.3 - Anal fistula Plan: Seton in place. I was able to tighten the seton some more using a silk 2 0 tie. This is very snug on very short residual fistula tract. I will see him again in about a month. I am hoping that this seton would have cut through completely by then. Coding Level of Care Code Est Pt Level 3 (82011) Diagnoses Anal fistula K60.3
== END 2022-10-24 09:23 | disposition home or self-care (01) ==
PROVIDERS: PCP Family Medicine; Visit Provider Surgery
DX: K60.3 Anal fistula (principal)
CPT/HCPCS: 99213

== ENCOUNTER → 2022-10-24 08:45 | Outpatient (BNVA) | payer OTHER, SELFPAY | PROVIDERS: PCP Family Medicine; Visit Provider Surgery ==

== ENCOUNTER 2022-11-26 10:58 | Outpatient (AMB) | payer OTHER, SELFPAY ==
--- NOTE | 2022-11-26 11:17 | A.OFFVIS_ITS ---
Intake Vital Signs 11/26/22 11:22 Height 5 ft 10 in Weight 201 lb 8.04 oz BMI 28.9 BP 140/80 H Blood Pressure Location Lt brachial Position Sitting Intake Visit Reasons: anal fistula with a seton in place, 1 mo follow up Intake Note: Patient is seen in office for one month follow up visit, post anal fistula with seton in place. Patient c/o: admits to blood in the area, denies any other concerns Campus Chaplain Required: No Accompanied by: Family/Other Allergies No Known Allergies Allergy (Verified 11/26/22 11:23) Medication List - Last Reconciled 11/26/22 by Ranjan Delarosa MD allopurinol 100 mg PO DAILY amlodipine-benazepril 5-10 mg 1 cap PO DAILY docusate sodium (Colace) 100 mg PO BID ibuprofen 600 mg PO Q6H PRN oxycodone-acetaminophen 5-325 mg (Percocet) 1 tab PO Q4-6H PRN tamsulosin (Flomax) 0.4 mg PO DAILY HPI anal fistula with a seton in place, 1 mo follow up HPI Details He is here for follow-up for his seton for his anal fistula. He denies any new complaints. Denies any pain with his seton. He denies any new drainage although he would see amounts of blood on wiping once in a while. [facility] Medical History Anal fistula Anxiety Gout Hemorrhoids with complication HTN (hypertension) Hx of degenerative disc disease Kidney stones Surgical History H/O hemorrhoidectomy (06/29/22) History of back surgery Hx of colonoscopy Hx of lithotripsy Social History Housing: House Are you a primary overnight caregiver to a significant other at home: No Do you presently have visiting nurse or other home services: No Alcohol intake: never Patient Tobacco Use Status: Never used Tobacco e-Cigarette/Vaping Use: Never Used Second Hand Smoke Exposure: No Current occupational status: retired Current occupational exposures/hazards: No Cognitive needs: No Hearing needs: No Vision needs: No Physical Exam Const General: comfortable and no acute distress Resp Effort & Inspection: normal respiratory effort GI Other: Rectal exam shows the seton to be in place with a short remaining fistula tract, no induration, no active discharge, no sinuses Assessment & Plan Assessment & Plan (1) Anal fistula: Code(s): K60.3 - Anal fistula Plan: Seton in place. I was able to tighten the seton some more to make this snug around the remaining fistula tract. There is a very short residual fistula tract. There are no new induration or sinus as I will see him again in another month. We may be able to remove the seton by then unless this cuts through completely. Coding Level of Care Code Est Pt Level 3 (28607) Diagnoses Anal fistula K60.3
[2022-11-26 11:22] VITALS: BP 140/80; BMI 28.9
== END 2022-11-26 11:29 | disposition home or self-care (01) ==
PROVIDERS: PCP Family Medicine; Visit Provider Surgery
DX: K60.3 Anal fistula (principal)
CPT/HCPCS: 99213

== ENCOUNTER → 2022-11-26 10:58 | Outpatient (BNVA) | payer OTHER, SELFPAY | PROVIDERS: PCP Family Medicine; Visit Provider Surgery ==

== ENCOUNTER 2022-12-24 09:58 | Outpatient (AMB) | payer OTHER, SELFPAY ==
[2022-12-24 10:02] VITALS: BP 138/91; PULSE 74; BMI 28.7
--- NOTE | 2022-12-24 10:02 | MHC.OFFVIS ---
Intake Vital Signs 12/24/22 10:02 Height 5 ft 10 in Weight 200 lb BMI 28.7 BP 138/91 H Blood Pressure Location Rt brachial Position Sitting Pulse 74 Intake Visit Reasons: anal fistula with a seton in place, 1 mo follow up Intake Note: This patient presents for a one month follow-up for seton. Patient c/o; denies complaints at this time. Customer Success Associate Required: No Accompanied by: Other Relationship Allergies No Known Allergies Allergy (Verified 12/24/22 10:11) Medication List - Last Reconciled 12/24/22 by Ranjan Delarosa MD allopurinol 100 mg PO DAILY amlodipine-benazepril 5-10 mg 1 cap PO DAILY docusate sodium (Colace) 100 mg PO BID ibuprofen 600 mg PO Q6H PRN oxycodone-acetaminophen 5-325 mg (Percocet) 1 tab PO Q4-6H PRN tamsulosin (Flomax) 0.4 mg PO DAILY HPI anal fistula with a seton in place, 1 mo follow up HPI Details He is here for follow-up after placement of a seton for his anal fistula. He says that the seton had fallen off about 2 weeks ago. He denies any new discharge but says that he feels that these same areas seems to be a little swollen. He denies significant pain. [facility] Medical History Anxiety Hx of degenerative disc disease Hemorrhoids with complication Anal fistula HTN (hypertension) Gout Kidney stones Surgical History H/O hemorrhoidectomy (06/29/22) Hx of colonoscopy Hx of lithotripsy History of back surgery Social History Housing: House Are you a primary healthcare account manager to a significant other at home: No Do you presently have visiting nurse or other home services: No Alcohol intake: never Patient Tobacco Use Status: Never used Tobacco e-Cigarette/Vaping Use: Never Used Second Hand Smoke Exposure: No Current occupational status: retired Current occupational exposures/hazards: No Cognitive needs: No Hearing needs: No Vision needs: No Review of Systems Const Denies chills and Denies fever(s) Card Denies chest pain, Denies dyspnea and Denies dyspnea on exertion Resp Denies cough, Denies dyspnea and Denies dyspnea on exertion GI Denies hematochezia and Denies change in bowel habits Denies hematuria and Denies difficulty urinating Musc Denies back pain and Denies limited range of motion Neuro Denies focal weakness and Denies convulsions Psych Denies depression and Denies mood swings Physical Exam Vital Signs: Last Vital Signs Pulse 74 12/24/22 10:02 BP 138/91 H 12/24/22 10:02 BMI result Body Mass Index 28.7 Const General: comfortable and no acute distress Resp Effort & Inspection: normal respiratory effort Cardio Rate: regular rate GI Other: Previous fistula site is now completely healed, seton is not seen any more, no obvious induration, no fluctuance, no redness, no discharge Assessment & Plan Assessment & Plan (1) Anal fistula: Code(s): K60.3 - Anal fistula Plan: Status post seton placement. The seton is completely cut through. There is no residual induration although he says that he feels that the air seems to be a little swollen. This may be secondary to chronic changes I will see him again in about another month for another wound check. Coding Level of Care Code Est Pt Level 2 (00444) Diagnoses Anal fistula K60.3
== END 2022-12-24 10:19 | disposition home or self-care (01) ==
PROVIDERS: PCP Family Medicine; Visit Provider Surgery
DX: K60.3 Anal fistula (principal)
CPT/HCPCS: 99212

== ENCOUNTER → 2022-12-24 09:58 | Outpatient (BNVA) | payer OTHER, SELFPAY | PROVIDERS: PCP Family Medicine; Visit Provider Surgery ==

== ENCOUNTER 2023-01-21 10:11 | Outpatient (AMB) | payer OTHER, SELFPAY ==
--- NOTE | 2023-01-21 10:12 | A.OFFVIS_ITS ---
Intake Intake Visit Reasons: anal fistula with a seton in place, 1 mo follow up Intake Note: This patient presents for a one month follow-up for seton. Patient c/o; report no changes or complaints at this time. Material Manager Required: No Accompanied by: Other Relationship Allergies No Known Allergies Allergy (Verified 01/21/23 10:17) Medication List - Last Reconciled 01/21/23 by Ranjan Delarosa MD allopurinol 100 mg PO DAILY amlodipine-benazepril 5-10 mg 1 cap PO DAILY docusate sodium (Colace) 100 mg PO BID ibuprofen 600 mg PO Q6H PRN oxycodone-acetaminophen 5-325 mg (Percocet) 1 tab PO Q4-6H PRN tamsulosin (Flomax) 0.4 mg PO DAILY HPI anal fistula with a seton in place, 1 mo follow up HPI Details He is here for follow-up after he seton had cut through completely. He continues to do well. He denies complaints with his perianal area. He has been riding his bike without problems. He denies any new drainage or induration. [facility] Medical History Anxiety Hx of degenerative disc disease Hemorrhoids with complication Anal fistula HTN (hypertension) Gout Kidney stones Surgical History H/O hemorrhoidectomy (06/29/22) Hx of colonoscopy Hx of lithotripsy History of back surgery Social History Housing: House Are you a primary congregational care pastor to a significant other at home: No Do you presently have visiting nurse or other home services: No Alcohol intake: never Patient Tobacco Use Status: Never used Tobacco e-Cigarette/Vaping Use: Never Used Second Hand Smoke Exposure: No Current occupational status: retired Current occupational exposures/hazards: No Cognitive needs: No Hearing needs: No Vision needs: No Review of Systems Const Denies chills and Denies fever(s) Card Denies chest pain, Denies dyspnea and Denies dyspnea on exertion Resp Denies cough, Denies dyspnea and Denies dyspnea on exertion GI Denies hematochezia and Denies change in bowel habits Denies hematuria and Denies difficulty urinating Musc Denies back pain and Denies limited range of motion Neuro Denies focal weakness and Denies convulsions Psych Denies depression and Denies mood swings Physical Exam Const General: comfortable and no acute distress Resp Effort & Inspection: normal respiratory effort GI Other: Rectal exam - no new induration, no sinus, no tenderness, no discharge, no erythema Assessment & Plan Assessment & Plan (1) Anal fistula: Code(s): K60.3 - Anal fistula Plan: Status post seton placement and the seton has cut through completely. There was no dense of any new sinus or induration. His old fistula tract has healed completely. He can follow on a p.r.n. basis. Coding Level of Care Code Est Pt Level 2 (61093) Diagnoses Anal fistula K60.3
== END 2023-01-21 10:27 | disposition home or self-care (01) ==
PROVIDERS: PCP Family Medicine; Visit Provider Surgery
DX: K60.3 Anal fistula (principal)
CPT/HCPCS: 99212

== ENCOUNTER → 2023-01-21 10:11 | Outpatient (BNVA) | payer OTHER, SELFPAY | PROVIDERS: PCP Family Medicine; Visit Provider Surgery ==

== ENCOUNTER 2023-08-29 07:33 | Outpatient (REF) | payer MEDICARE, OTHER, SELFPAY ==
[2023-08-29 11:44] LABS: Appearance Urine Clear; Color Urine Dark Yellow; Glucose Urine UA Negative (Negative); Leukocyte Esterase Urine Negative (Negative); Nitrite Urine Negative (Negative); PH 5.5 (5.0-9.0); Specific Gravity - Urine 1.015 (1.005-1.025); Urine Blood Negative (Negative); Urine Ketones Negative (Negative); Urine Protein Negative (Neg-Trace)
[2023-08-29 12:03] LABS: Anion Gap 12 (12-20); Blood Urea Nitrogen 15 mg/dL (9-16); Calcium 9.4 mg/dL (8.4-10.2); Carbon Dioxide 26 mmol/L (22-29); Chloride 107 mmol/L (96-108); Estimated Glomerular Filt Rate > 60; Potassium 3.8 mmol/L (3.3-5.1); Sodium 141 mmol/L (135-145)
[2023-08-29 12:44] LABS: Creatinine Urine 136.29 mg/dL; Microalbum/Creatinine Ratio Ur 9.5 ug/mg cr (<30); Total Protein Urine Random < 7 mg/dL (<12)
== END 2023-08-29 07:34 | disposition home or self-care (01) ==
LOC: HO.WFDLDS 07:33
PROVIDERS: Visit Provider Internal Medicine Nephrology
DX: N20.0 Calculus of kidney (principal); I10 Essential (primary) hypertension
CPT/HCPCS: 36415; 80051; 81003; 82043; 82310; 82565; 82570; 84156; 84520

== ENCOUNTER 2024-01-07 09:59 | Outpatient (AMB) | payer MEDICARE, OTHER, SELFPAY ==
[2024-01-07 10:09] VITALS: BP 148/90; PULSE 71; O2SAT 97; BMI 29.1
--- NOTE | 2024-01-07 10:09 | HO.NEPHOV_ITS ---
Vital Signs 01/07/24 10:09 Height 5 ft 10 in Weight 203 lb BMI 29.1 BP 148/90 H Blood Pressure Location Rt brachial Position Sitting Pulse 71 Pulse Source Pulse Oximeter Pulse Oximetry (%) 97 Oxygen Delivery Method Room Air Intake Visit Reasons: HTN, Kidney Stones/ Conf Fixed Wing Aircraft Flight Mechanic Required: No Accompanied by: Self / Same As Patient Allergies No Known Allergies Allergy (Verified 01/07/24 10:11) Medication List - Last Reconciled 01/07/24 by Gustavo Hayes MD allopurinol 100 mg PO DAILY amlodipine-benazepril 5-10 mg 1 cap PO DAILY HPI Comments Details: Jorge is a pleasant middle aged man with a history of nephrolithiasis and hypotension. He was documented white coat effect based on 24 hour ABP M. With the last 1 year he has done well. He had anal fissure surgery. Otherwise no significant change in health history. He is compliant with his medications. [facility] Medical History Anxiety Hx of degenerative disc disease Hemorrhoids with complication Anal fistula HTN (hypertension) Gout Kidney stones Surgical History H/O hemorrhoidectomy (06/29/22) Hx of colonoscopy Hx of lithotripsy History of back surgery Social History Housing: House Are you a primary zoo caretaker to a significant other at home: No Do you presently have visiting nurse or other home services: No Alcohol intake: never Patient Tobacco Use Status: Never used Tobacco e-Cigarette/Vaping Use: Never Used Second Hand Smoke Exposure: No Current occupational status: retired Current occupational exposures/hazards: No Cognitive needs: No Hearing needs: No Vision needs: No Review of Systems Const Denies fever(s) and Denies weight loss Card Denies chest pain Resp Denies cough and Denies hemoptysis GI Denies abdominal pain, Denies diarrhea and Denies nausea Musc Denies back pain Neuro Denies focal weakness Physical Exam Vital Signs: Last Vital Signs Pulse 71 01/07/24 10:09 BP 148/90 H 01/07/24 10:09 Pulse Ox 97 01/07/24 10:09 Oxygen Delivery Method Room Air 01/07/24 10:09 BMI result Body Mass Index 29.1 Const General: comfortable; No acute distress Orientation/consciousness: patient oriented x3 Eyes General: appearance normal, both eyes and all related structures Visual Luque: normal visual luque by confrontation Neck Neck: Yes supple and Yes no JVD Resp Effort & Inspection: normal respiratory effort and respiratory effort not decreased Auscultation: rhonchi Cardio Palpation: no palpable S3 and no palpable S4 Heart sounds: no rubs GI Inspection: Yes normal to inspection Palpation (GI): Soft to palpation Percussion: Yes normal to percussion Auscultation: normal bowel sounds General: Yes no CVA tenderness Back/Spine/Pelvis Back: no CVA tenderness Skin General skin exam: no petechiae and no purpura Neuro General: patient oriented x3 and no focal motor deficits Extrem General: No clubbing and No edema Results Reviewed Nephrology Results: Sodium 141 mmol/L (135-145) 08/29/23 Potassium 3.8 mmol/L (3.3-5.1) 08/29/23 Chloride 107 mmol/L (96-108) 08/29/23 Carbon Dioxide 26 mmol/L (22-29) 08/29/23 BUN 15 mg/dL (9-16) 08/29/23 Creatinine 1.06 mg/dL (0.5-1.4) 08/29/23 Calcium 9.4 mg/dL (8.4-10.2) 08/29/23 Urine Protein Negative mg/dL (Neg-Trace) 08/29/23 Urine Creatinine 136.29 mg/dL 08/29/23 Protein/Creatinin Ratio TNP 08/29/23 Assessment & Plan Assessment & Plan (1) HTN (hypertension): Code(s): I10 - Essential (primary) hypertension Category: Medical (2) Kidney stones: Code(s): N20.0 - Calculus of kidney Category: Medical (3) Gout: Code(s): M10.9 - Gout, unspecified Category: Medical Plan Overall blood pressure has been well controlled. He was superimposed white coat effect. Office reading was slightly elevated today. Encouraged him to watch his blood pressure at home and call me if systolic blood pressures more than 140 mm. He should stay on low-sodium diet Continue with current dose of benazepril amlodipine combination. As with the kidney stones he should stay on low-sodium diet and increase his fluid intake to maintain urine output of 2 L per 24 hours. History of gout no recent episodes. Continue with allopurinol and we will check uric acid prior to next visit. All his questions were answered Orders: Orders Basic Metabolic Panel 1 Year I10 - Essential (primary) hypertension UA and rflx microscopic 1 Year I10 - Essential (primary) hypertension Uric Acid 1 Year I10 - Essential (primary) hypertension Medications: New amlodipine-benazepril 5-10 mg 1 cap PO DAILY 90 caps 3RF Refilled allopurinol 100 mg PO DAILY 90 tabs 6RF Coding Level of Care Code Est Pt Level 4 (05072) Diagnoses HTN (hypertension) I10 Kidney stones N20.0 Gout M10.9
== END 2024-01-07 10:42 | disposition home or self-care (01) ==
PROVIDERS: PCP Family Medicine; Visit Provider Internal Medicine Hypertension Specialist
DX: I10 Essential (primary) hypertension (principal); N20.0 Calculus of kidney; M10.9 Gout, unspecified
CPT/HCPCS: 99214

== ENCOUNTER → 2024-01-07 09:59 | Outpatient (BNVA) | payer OTHER, SELFPAY | PROVIDERS: PCP Family Medicine; Visit Provider Internal Medicine Hypertension Specialist ==

== ENCOUNTER 2024-08-19 11:34 | Outpatient (REF) | payer MEDICARE, OTHER, SELFPAY ==
--- OUTSIDE RECORDS SUMMARY | 2024-08-19 12:30 | XMS_ITS | Clinical Summary ---
Author Organization [facility] Facility Address [address] [facility] [address] [place] [address] Care Team Providers Care Metal Lather Name Role Phone Primo Delacruz MD Primary Care Provider Allergies Active Allergy Reactions Criticality Noted Date Comments Lisinopril Other (see comments) 05/31/2011 Medications amLODIPine-bear zepril (LOTREL 5-10) 5-10 MG per capsule Take 1 capsule by mouth 1 (one) time each day 30 capsule 11 01/10/2023 Active allopurinol (ZYLOPRIM) 100 MG tablet Take 1 tablet (100 mg total) by mouth 1 (one) time each day 90 tablet 3 01/11/2023 Active Active Problems Problem Noted Date Diagnosed Date Hypertriglyceridemia 01/10/2023 01/10/2023 Overview (01/10/2023): fish oil Elevated blood pressure read ing without diagnosis of hypertension 01/09/2021 Essential hypertension 01/09/2021 Renal stone 01/09/2021 Overweight 06/23/2012 01/10/2023 Hemorrhoid 06/23/2012 01/10/2023 Gout 07/29/2010 01/10/2023 Encounters Date Type Department Care Team Description 07/05/2024 Refill [facility] [address] [place] [id number] Matty Steve MD from Last 3 Months Immunizations Immunization Administration Dates Next Due PPD Test 07/17/2010 Pfizer SARS-COV-2 07/20/2021 Shingrix 09/20/2021,06/26/2021 Family History Relation Status Comments Father Mother Social History Tobacco Use Types Packs/Day Years Used Date Smoking Tobacco: Never Smokeless Tobacco: Never Tobacco Cessation:Counseling Given: Not Answered Alcohol Use Standard Drinks/Week Comments No 0 (1 standard drink = 0.6 oz pur e alcohol) Sex and Gender Information Value Date Recorded Sex Assigned at Not on file Legal Sex Male 5:12 PM EST Gender Identity Not on file Sexual Orientation Not on file Last Filed Vital Signs Vital Sign Reading Time Taken Comments Blood Pressure 138/86 01/10/2023 12:44 PM EDT Pulse 74 01/10/2023 12:44 PM EDT Temperature - - Respiratory Rate - - Oxygen Saturation 99% 01/10/2023 12:44 PM EDT Inhaled Oxygen Concentration - - Weight 91.6 kg (202 lb) 01/10/2023 12:44 PM EDT Height 177.8 cm (5' 10 ) 01/09/2021 12:54 PM EDT Body Mass Index 28.98 01/09/2021 12:54 PM EDT Plan of Treatment Health Maintenance Due Date Last Done Comments Pneumococcal Vaccine: 50+ Ye ars (1 of 2 - PCV) 1977 Colorectal Cancer Screening: Annual FOBT 2007 Colorectal Cancer Screening: Colonoscopy 2007 Colorectal Cancer Screening: Sigmoidoscopy 2007 Influenza Vaccine (Season Ended) 2024 Hepatitis B Vaccine Aged Out No longe r eligible based on patient's age to complete this topic Insurance [facility] Care Teams Metal Lather Relationship Specialty Start Date End Date Primo Delacruz MD [address] [address] PCP - General Family Medicine 01/08/22
--- OUTSIDE RECORDS SUMMARY | 2024-08-19 12:30 | XMS_ITS | Encounter Summary ---
Author Organization [facility] Address [address] [facility] [address] [place] [address] Phone Care Team Providers Care Flight Communications Operator Name Role Phone Primo Delacruz MD Primary Care Provider Reason for Visit * Reason Comments Med Refill Encounter Details Date Type Department Care Team (Late st Contact Info) Description 07/05/2024 Refill [facility] [address] [place] [id number] Matty Steve MD [address] [facility] [address] [place] [address] Social History Tobacco Use Types Packs/Day Years Used Date Smoking Tobacco: Never Smokeless Tobacco: Never Alcohol Use Standard Drinks/Week Comments No 0 (1 standard drink = 0.6 oz pur e alcohol) Sex and Gender Information Value Date Recorded Sex Assigned at Not on file Legal Sex Male 5:12 PM EST Gender Identity Not on file Sexual Orientation Not on file documented as of this encounter Plan of Treatment Not on file documented as of this encounter Visit Diagnoses Not on filedocumented in this encounter Care Teams Flight Communications Operator Relationship Specialty Start Date End Date Primo Delacruz MD [address] [facility] [address] [place] [address] PCP - General Family Medicine 01/08/22 documented as of this encounter
[2024-08-19 13:10] LABS: Appearance Urine Clear; Color Urine Yellow; Glucose Urine UA Negative (Negative); Leukocyte Esterase Urine Negative (Negative); Nitrite Urine Negative (Negative); Urine Blood Negative (Negative); Urine Ketones Negative (Negative); Urine Protein Negative (Neg-Trace)
[2024-08-19 13:19] LABS: Anion Gap 11 (12-20); Blood Urea Nitrogen 17 mg/dL (9-16); Calcium 9.1 mg/dL (8.4-10.2); Carbon Dioxide 27 mmol/L (22-29); Chloride 105 mmol/L (96-108); Estimated Glomerular Filt Rate > 60; Glucose Random 130 mg/dL (60-115); Sodium 139 mmol/L (135-145)
== END 2024-08-19 11:35 | disposition home or self-care (01) ==
LOC: HO.10HDL 11:34
PROVIDERS: Visit Provider Internal Medicine Hypertension Specialist
DX: I10 Essential (primary) hypertension (principal)
CPT/HCPCS: 36415; 80048; 81003; 84550

== ENCOUNTER 2024-09-19 01:28 | Emergency (ER) | payer MEDICARE, OTHER, SELFPAY ==
--- NOTE | ~2024-09-19 | CT_ITS ---
CLINICAL HISTORY: R flank pain CT Abdomen and Pelvis WO Contrast COMPARISON: None FINDINGS: Detail limited by artifacts. Small hiatal hernia. Diffusely hypodense liver consistent with hepatic steatosis. Hepatomegaly. Normal spleen. Calculus in the mid to distal right ureter measuring 6 mm. Mild right hydronephrosis. Nonobstructing bilateral renal calculi. Normal adrenal glands. Calcification in the pancreatic neck, which could be due to chronic pancreatitis. No evidence of acute pancreatitis. No visible cholelithiasis. No biliary dilation. Mild colonic diverticulosis without evidence of acute diverticulitis. No mucosal thickening. No evidence of obstruction. Normal appendix. Unremarkable bladder. Mildly enlarged prostate. No ascites. No pneumoperitoneum. No lymphadenopathy. No acute fracture. Status post posterior L4-S1 fusion and discectomies. Degenerative changes in the spine. No abdominal aortic aneurysm. IMPRESSION: Right ureteral calculus. Mild right hydronephrosis. Nonemergent/incidental findings above. This document has been electronically signed by: Finesse Starks MD on 09/19/2024 04:31:05
[2024-09-19 01:46] VITALS: BP 173/102; PULSE 66; RESP 18; TEMP 37.1; O2SAT 98; BMI 29.4
[2024-09-19 02:12] LABS: MANUAL DIFF FLAG NO
[2024-09-19 02:15] LABS: Appearance Urine Clear; Basophils Percent Auto 0.4 % (0-2); Color Urine Yellow; Eosinophils Absolute Auto 0.2 X10*3/uL (0.0-0.4); Eosinophils Percent Auto 2.7 % (0-4); Glucose Urine UA Negative (Negative); Hematocrit 41.4 % (42.0-52.0); Hemoglobin 15.2 g/dl (14.0-18.0); Imm Gran Abs Auto 0.02 X10*3/uL (0.00-0.03); Imm Gran Pct Auto 0.4 % (0.0-0.4); Leukocyte Esterase Urine Negative (Negative); Lymphocytes Absolute Auto 1.9 X10*3/uL (1.2-4.9); Lymphocytes Percent Auto 33.2 % (20-40); Mean Corpuscular HGB Conc 36.7 g/dl (31.0-36.0); Mean Corpuscular Hemoglobin 33.1 pg (27.0-33.0); Mean Corpuscular Volume 90.2 fL (80.0-98.0); Mean Platelet Volume 10.6 fL (9.4-12.4); Monocytes Absolute Auto 0.6 X10*3/uL (0.1-1.2); Monocytes Percent Auto 10.9 % (2-11); Neutrophils Absolute Auto 2.9 x10*3/uL (2.0-8.3); Neutrophils Percent Auto 52.4 % (45-73); Nitrite Urine Negative (Negative); Platelet Count 133 X10*3/uL (160-400); Red Blood Count 4.59 X10*6/uL (4.60-5.80); Red Cell Distribution Width 11.9 % (11.0-16.0); Urine Blood Negative (Negative); Urine Ketones Negative (Negative); Urine Protein Negative (Neg-Trace); White Blood Count 5.6 X10*3/uL (4.8-10.8)
[2024-09-19 02:32] LABS: Alanine Aminotransferase 87 U/L (0-40); Albumin Level 4.4 g/dL (3.5-5.0); Alkaline Phosphatase 73 U/L (39-117); Anion Gap 13 (12-20); Aspartate Amino Transferase 53 U/L (5-37); Bilirubin Total 0.8 mg/dL (0.0-1.0); Blood Urea Nitrogen 21 mg/dL (9-16); Calcium 9.6 mg/dL (8.4-10.2); Carbon Dioxide 22 mmol/L (22-29); Chloride 109 mmol/L (96-108); Creatinine Clr Calc Pharmacy 61.1; Estimated Glomerular Filt Rate 52; Glucose Random 147 mg/dL (60-115); Potassium 3.8 mmol/L (3.3-5.1); Sodium 140 mmol/L (135-145); Total Protein 7.5 g/dL (6.5-8.0)
--- NOTE | 2024-09-19 02:36 | ED.MALEGU ---
HPI - Male Genitourinary General Chief complaint: Urogenital-Male Stated complaint: passing kidney stone Time Seen by Provider: 09/19/24 02:33 Source: patient Mode of arrival: ambulatory Limitations: no limitations History of Present Illness ED Provider: Dr. Hailey Alejandra HPI Narrative: patient comes to the emergency room complaining of right-sided flank pain. Patient states it started around 00:30. Patient reports that he has passed multiple stones in the past and the pain is familiar to him. Patient denies hematuria. Denies fever chills. Related Data Previous Rx's ?Medication ?Instructions ?Recorded allopurinol 100 mg tablet 100 mg PO DAILY #90 tabs 01/07/24 amlodipine 5 mg-benazepril 20 mg 1 cap PO DAILY #30 caps 03/02/24 capsule ketorolac 10 mg tablet 10 mg PO Q8H PRN pain #15 tabs 09/19/24 ondansetron HCl 4 mg tablet 4 mg PO Q6H PRN nausea and 09/19/24 vomiting #14 tabs tamsulosin 0.4 mg capsule 0.4 mg PO DAILY #10 caps 09/19/24 Allergies Allergy/AdvReac Type Severity Reaction Status Date / Time No Known Allergies Allergy Verified 09/19/24 01:51 Review of Systems Review of Systems: Yes Other ( Complaining of flank pain) PMFSH Past Medical History Medical History Anxiety Hx of degenerative disc disease Hemorrhoids with complication Anal fistula HTN (hypertension) Gout Kidney stones Surgical History H/O hemorrhoidectomy (06/29/22) Hx of colonoscopy Hx of lithotripsy History of back surgery Social History Social History Housing: House Are you a primary child care sitter to a significant other at home: No Do you presently have visiting nurse or other home services: No Alcohol intake: never Patient Tobacco Use Status: Never used Tobacco e-Cigarette/Vaping Use: Never Used Second Hand Smoke Exposure: No Advance Directives: No Advance Directives Information Provided: Yes Current occupational status: retired Current occupational exposures/hazards: No Cognitive needs: No Hearing needs: No Vision needs: No Physical Exam Vital Signs: Vital Signs: Last Vital Signs Temp 97.4 F 09/19/24 04:03 Pulse 60 09/19/24 04:03 Resp 16 09/19/24 04:03 BP 157/91 H 09/19/24 04:03 Pulse Ox 97 09/19/24 04:03 O2 Del Method Room Air 09/19/24 04:03 BMI result Body Mass Index 29.4 Const: Other: Appearance: Alert. Eyes: Pupils equal, round and reactive to light. ENT: Pharynx normal. Neck: Normal inspection. Neck supple. No lymph nodes noted. No crepitus CVS: Normal heart rate and rhythm. Pulses normal. Normal S1 and S2 Respiratory: No respiratory distress. Abdomen: Soft No distention. Skin: Skin warm and dry. Normal skin color. Normal skin turgor. Extremities: No lower extremity edema. No Lacerations. No Rash Neuro: Oriented X 3. No motor deficit. No sensory deficit. Moving all extremities. No slurred speech. CN 2 through 12 grossly intact Psych: calm, cooperative, normal affect Course Course Course Narrative: patient arrived to the emergency room complaining of right-sided flank pain. When patient was brought back to the main ED, I was informed by the patient's nurse and charge nurse that the patient was being extremely route, belligerent Both of them tried to talk to the patient, but he kept cutting them off, and continued making belligerent statements I also received multiple complaints from the text that the patient was being rude towards them as well Patient himself has multiple complaints, including that he rang develop multiple times and no one was seen. However, I was informed by patient's nurse, charge nurse and several text that they all witnessed that the patient's nurse went to check on him several times. Patient also complaining that he was freezing a never got additional blankets. again, I was informed by the staff that he never requested additional blankets patient complains that he rang the alicia multiple times and no one went to see him. However, again techs and nurses informed me that they went in multiple times to check on him. another nurse that was next door, witnessed when the patient's nurse went to check on him and check on his pain level, patient was calm and doing well after being medicated. she even mentioned that the patient and his were laughing and joking with his nurse. However, patient denies that anyone checked on him. overall, multiple nurses, charge nurse on staff complaining that patient is making up complaints I was also informed that by the time that the patient was discharge, patient told his nurse that he will like to apologize for his behavior Medications Administered Discontinued Medications Generic Name Dose Route Start Last Admin Trade Name Christopher PRN Reason Stop Dose Admin Ketorolac Tromethamine 30 mg 09/19/24 02:36 09/19/24 02:47 Ketorolac Tromethamine 30 Mg/Ml Vial IVPUSH 09/19/24 02:37 30 mg ONCE ONE Administration Medical Decision Making Medical Decision Making [facility] Narrative: my interpretation of labs: No significant abnormality in patient's hematology and chemistry, creatinine within normal limits, LFTs slightly bumped, AST 53, ALT 87 urinalysis negative for UTI or blood in the urine I discussed the CT scan with the patient, patient has a ureteral calculus, seems to be measuring 6 mm. Borderline whether the patient will pass it due to its size. I discussed with the patient that he will be prescribed medications to help pass the stone, nausea meds and pain meds. Patient states that he knows that he already passed the stone and wants to be discharged. Differential Diagnosis Differential Diagnoses: The differential diagnosis associated with the presentation includes ( Ureterolithiasis, pyelonephritis, UTI, musculoskeletal pain) Admission/Observation Consideration of admission/observation: Escalation of care including admission/observation considered ( given patient's initial set of complaints, stated amount of pain, observation/ admission was considered) Lab Data [facility] Lab Attestation statement: I reviewed the patient's lab results. 09/19/24 02:06 09/19/24 02:06 Labs: Lab Results 09/19/24 Range/Units 02:06 WBC 5.6 (4.8-10.8) X10*3/uL RBC 4.59 L (4.60-5.80) X10*6/uL Hgb 15.2 (14.0-18.0) g/dl Hct 41.4 L (42.0-52.0) % MCV 90.2 (80.0-98.0) fL MCH 33.1 H (27.0-33.0) pg MCHC 36.7 H (31.0-36.0) g/dl RDW 11.9 (11.0-16.0) % Plt Count 133 L (160-400) X10*3/uL MPV 10.6 (9.4-12.4) fL Immature Gran % (Auto) 0.4 (0.0-0.4) % Neut % (Auto) 52.4 (45-73) % Lymph % (Auto) 33.2 (20-40) % [place] % (Auto) 10.9 (2-11) % Eos % (Auto) 2.7 (0-4) % Baso % (Auto) 0.4 (0-2) % Lymph # (Auto) 1.9 (1.2-4.9) X10*3/uL [place] # (Auto) 0.6 (0.1-1.2) X10*3/uL Eos # (Auto) 0.2 (0.0-0.4) X10*3/uL Baso # (Auto) 0.0 (0.0-0.2) X10*3/uL Abs Immat Gran (auto) 0.02 (0.00-0.03) X10*3/uL Absolute Neuts (auto) 2.9 (2.0-8.3) x10*3/uL Absolute Nucleated RBC 0.000 (0.0-0.012) X10*3/uL Nucleated RBC % (auto) 0.0 (0.0-0.2) /100WBC Sodium 140 (135-145) mmol/L Potassium 3.8 (3.3-5.1) mmol/L Chloride 109 H (96-108) mmol/L Carbon Dioxide 22 (22-29) mmol/L Anion Gap 13 (12-20) BUN 21 H (9-16) mg/dL Creatinine 1.36 (0.5-1.4) mg/dL Estim Creat Clear Calc 61.1 Estimated GFR 52 Random Glucose 147 H (60-115) mg/dL Calcium 9.6 (8.4-10.2) mg/dL Total Bilirubin 0.8 (0.0-1.0) mg/dL AST 53 H (5-37) U/L ALT 87 H (0-40) U/L Alkaline Phosphatase 73 (39-117) U/L Total Protein 7.5 (6.5-8.0) g/dL Albumin 4.4 (3.5-5.0) g/dL Urine Color Yellow Urine Appearance Clear Urine pH 6.0 (5.0-9.0) Ur Specific [place] 1.010 (1.005-1.025) Urine Protein Negative (Neg-Trace) mg/dL Urine Glucose (UA) Negative (Negative) mg/dL Urine Ketones Negative (Negative) mg/dL Urine Blood Negative (Negative) Urine Nitrite Negative (Negative) Ur Leukocyte Esterase Negative (Negative) Urine Opiates Screen Not Detected (Not Detect) Ur Buprenorphine Scrn Not Detected (Not Detect) ng/mL Ur Oxycodone Screen Not Detected (Not Detect) ng/mL Urine Methadone Screen Not Detected (Not Detect) ng/mL Urine Fentanyl Screen Not Detected (Not Detect) Ur Barbiturates Screen Not Detected (Not Detect) Ur Phencyclidine Scrn Not Detected (Not Detect) Ur Amphetamines Screen Not Detected (Not Detect) U Benzodiazepines Scrn Not Detected (Not Detect) Urine Cocaine Screen Not Detected (Not Detect) U Marijuana (THC) Screen Not Detected (Not Detect) Independent Interpretation I performed an independent interpretation of an: CT Scan Radiology Impression Discussion of test interpretation with radiology: I have reviewed the radiologist's reading. Radiologist Impression: Detail limited by artifacts. Small hiatal hernia. Diffusely hypodense liver consistent with hepatic steatosis. Hepatomegaly. Normal spleen. Calculus in the mid to distal right ureter measuring 6 mm. Mild right hydronephrosis. Nonobstructing bilateral renal calculi. Normal adrenal glands. Calcification in the pancreatic neck, which could be due to chronic pancreatitis. No evidence of acute pancreatitis. No visible cholelithiasis. No biliary dilation. Mild colonic diverticulosis without evidence of acute diverticulitis. No mucosal thickening. No evidence of obstruction. Normal appendix. Unremarkable bladder. Mildly enlarged prostate. No ascites. No pneumoperitoneum. No lymphadenopathy. No acute fracture. Status post posterior L4-S1 fusion and discectomies. Degenerative changes in the spine. No abdominal aortic aneurysm. IMPRESSION: Right ureteral calculus. Mild right hydronephrosis. Nonemergent/incidental findings above. Critical Care Time Critical Care Time Critical Care Time: Yes Total Critical Care Time: 35 Attestation: I have personally provided critical care time. Time includes review of lab data, radiology results, discussion with consultants, and monitoring for potential decompensation. Intervention performed as documented. Discharge Plan Discharge Clinical Impression: Kidney stones Patient Disposition: Home, Self-Care Instructions: Kidney Stones (ED) Additional Instructions: Please follow-up with your primary care physician tomorrow. If you have any worsening or new symptoms, please return to the emergency room or call 911 Prescriptions: New ketorolac 10 mg tablet 10 mg PO Q8H PRN (Reason: pain) Qty: 15 0RF Rx Instructions: do not use this medication with any other NSAIDs tamsulosin 0.4 mg capsule 0.4 mg PO DAILY Qty: 10 0RF ondansetron HCl 4 mg tablet 4 mg PO Q6H PRN (Reason: nausea and vomiting) Qty: 14 0RF No Action amlodipine-benazepril 5-20 mg capsule 1 cap PO DAILY Qty: 30 11RF allopurinol 100 mg tablet 100 mg PO DAILY Qty: 90 6RF Referrals: Gary Sutherland MD [Physician] - 1 week Print Language: Greek
--- NOTE | 2024-09-19 02:39 | PC.NURSE ---
Loud banging can be heard from ED bed 5 on numerous occasions prior. This RN and other staff to bedside to assess, pt found pacing around the room, cursing outloud and expressing severe right flank pain. He reports his pain is currently 9/10 up from his previous 7/10 with last PO medication taken GENERAL CLERK which was tylenol and only helped enough to get me here per the patient. Primary nurse reported being cursed at by the patient and this RN to bedside. Pt made aware that nursing staff can only operate on MD orders and the only medications we can order without MD approval and/or order are ibuprofen and tylenol which have not previously worked. The pt continued to use profanity despite this RN's attempts to provide education, sympathize and update patient/visitor on what they are waiting for. MD Alejandra made aware and new orders obtained to assist with comfort and imaging.
[2024-09-19] MEDS: Ketorolac Tromethamine 30 MG/ML VIAL IVPUSH (02:47)
[2024-09-19 02:57] LABS: Amphetamine Screen Urine Not Detected (Not Detect); Barbiturates, Urine Not Detected (Not Detect); Benzodiazepines Screen Urine Not Detected (Not Detect); Buprenorphine Scr Not Detected (Not Detect); Cannabinoid Screen Urine Not Detected (Not Detect); Cocaine Screen Urine Not Detected (Not Detect); Fentanyl, urine Not Detected (Not Detect); Methadone Screen, Urine Not Detected (Not Detect); Opiate Screen Urine Not Detected (Not Detect); Oxycodone Screen Urine Not Detected (Not Detect); Phencyclidine Screen Urine Not Detected (Not Detect)
[2024-09-19 04:03] VITALS: BP 157/91; PULSE 60; RESP 16; TEMP 36.3; O2SAT 97
--- NOTE | 2024-09-19 04:36 | PC.NURSE ---
Upon arrival to ED room, patient noted to be agitated, pacing in room, yelling at staff about his pain. Multiple staff tried to educate patient that a physician needs to see him to order medication. Pt continued to swear at staff. Dr. Mon's informed of patient's pain and patient medicated per MAR. Pt much more calm and cooperative. Pt given urinal and urine stainer.
[2024-09-19 06:14] VITALS: BP 157/91; PULSE 60; RESP 16; TEMP 36.3; O2SAT 97
== END 2024-09-19 06:29 | disposition home or self-care (01) ==
PROVIDERS: Emergency Provider Emergency Medicine; PCP Family Medicine
DX: N13.2 Hydronephrosis with renal and ureteral calculous obstruction (principal); R10.9 Unspecified abdominal pain; I10 Essential (primary) hypertension; Z79.899 Other long term (current) drug therapy; Z87.442 Personal history of urinary calculi
CPT/HCPCS: 36415; 74176; 80053; 80307; 81003; 85025; 96374; 99284; J1885

== ENCOUNTER → 2024-09-19 02:36 | Outpatient (BNV) | payer MEDICARE, OTHER, SELFPAY | PROVIDERS: PCP Family Medicine; Visit Provider Radiology Diagnostic Radiology | DX: N13.2 Hydronephrosis with renal and ureteral calculous obstruction (principal) | CPT/HCPCS: 74176 ==

== ENCOUNTER 2025-01-07 09:02 | Outpatient (AMB) | payer OTHER, SELFPAY ==
[2025-01-07 09:22] VITALS: BP 142/88; PULSE 77; O2SAT 97; BMI 28.8
--- NOTE | 2025-01-07 09:22 | HO.NEPHOV ---
Vital Signs 01/07/25 09:22 Height 5 ft 10 in Weight 201 lb BMI 28.8 BP 142/88 H Blood Pressure Location Lt brachial Position Sitting Pulse 77 Pulse Source Pulse Oximeter Pulse Oximetry (%) 97 Oxygen Delivery Method Room Air Intake Visit Reasons: Hypertension, Left V.M. Job Placement Specialist Required: No Accompanied by: Self / Same As Patient Allergies No Known Allergies Allergy (Verified 01/07/25 09:24) Medication List - Last Reconciled 01/07/25 by Gustavo Hayes MD allopurinol 100 mg PO DAILY amlodipine-benazepril 5-20 mg 1 cap PO DAILY ketorolac 10 mg PO Q8H PRN ondansetron HCl 4 mg PO Q6H PRN tamsulosin 0.4 mg PO DAILY HPI Comments Details: Jorge is a pleasant middle aged man with a history of nephrolithiasis and hypotension. He was documented white coat effect based on 24 hour ABP M. With the last 1 year he has done well. He had anal fissure surgery. Otherwise no significant change in health history. He is compliant with his medications. 01/07/25 - The patient is a 64-year-old male presenting with hypertension and nephrolithiasis. - Hypertension: Managed with medication changes; home readings lower than clinical settings due to white coat effect. - Nephrolithiasis: CT showed mild right hydro in September 2024 Passed a 3 mm right-sided stone in September; managed with Toradol and tart ramirez juice. - Long history of calcium oxalate stones; follows a vegetarian diet to reduce purine intake. [facility] Medical History Anxiety Hx of degenerative disc disease Hemorrhoids with complication Anal fistula HTN (hypertension) Gout Kidney stones Surgical History H/O hemorrhoidectomy (06/29/22) Hx of colonoscopy Hx of lithotripsy History of back surgery Social History Housing: House Are you a primary careers adviser to a significant other at home: No Do you presently have visiting nurse or other home services: No Alcohol intake: never Patient Tobacco Use Status: Never used Tobacco e-Cigarette/Vaping Use: Never Used Second Hand Smoke Exposure: No Current occupational status: retired Current occupational exposures/hazards: No Cognitive needs: No Hearing needs: No Vision needs: No Physical Exam Vital Signs: Last Vital Signs Pulse 77 01/07/25 09:22 BP 142/88 H 01/07/25 09:22 Pulse Ox 97 01/07/25 09:22 Oxygen Delivery Method Room Air 01/07/25 09:22 BMI result Body Mass Index 28.8 Const General: comfortable; No acute distress Orientation/consciousness: patient oriented x3 Eyes General: appearance normal, both eyes and all related structures Visual Luque: normal visual luque by confrontation Neck Neck: Yes supple and Yes no JVD Resp Effort & Inspection: normal respiratory effort and respiratory effort not decreased Auscultation: rhonchi Cardio Palpation: no palpable S3 and no palpable S4 Heart sounds: no rubs GI Inspection: Yes normal to inspection Palpation (GI): Soft to palpation Percussion: Yes normal to percussion Auscultation: normal bowel sounds General: Yes no CVA tenderness Back/Spine/Pelvis Back: no CVA tenderness Skin General skin exam: no petechiae and no purpura Neuro General: patient oriented x3 and no focal motor deficits Extrem General: No clubbing and No edema Results Reviewed Nephrology Results: Hgb, (14.0-18.0) 15.2 g/dl 09/19/24 WBC, (4.8-10.8) 5.6 X10*3/uL 09/19/24 Plt Count, (160-400) 133 X10*3/uL L 09/19/24 Sodium, (135-145) 140 mmol/L 09/19/24 Potassium, (3.3-5.1) 3.8 mmol/L 09/19/24 Chloride, (96-108) 109 mmol/L H 09/19/24 Carbon Dioxide, (22-29) 22 mmol/L 09/19/24 BUN, (9-16) 21 mg/dL H 09/19/24 Creatinine, (0.5-1.4) 1.36 mg/dL 09/19/24 Calcium, (8.4-10.2) 9.6 mg/dL 09/19/24 Urine Protein, (Neg-Trace) Negative mg/dL 09/19/24 Urine Creatinine 136.29 mg/dL 08/29/23 Protein/Creatinin Ratio TNP 08/29/23 Renal US 03/09/22 Assessment & Plan Assessment & Plan (1) HTN (hypertension): Code(s): I10 - Essential (primary) hypertension Category: Medical (2) Kidney stones: Code(s): N20.0 - Calculus of kidney Category: Medical (3) Gout: Code(s): M10.9 - Gout, unspecified Category: Medical Plan Overall blood pressure has been well controlled at home He was superimposed white coat effect. Office reading was slightly elevated today. Encouraged him to watch his blood pressure at home and call me if systolic blood pressures more than 140 mm. He should stay on low-sodium diet Continue with current dose of benazepril amlodipine combination. kidney stones Check 24 hr urine stay on low-sodium diet and increase his fluid intake to maintain urine output of 2 L per 24 hours. Send for stone analyis Follow [facility] to check for resolution of right hydro History of gout no recent episodes. Continue with allopurinol and we will check uric acid prior to next visit. Orders: Orders US renal BI Today I10 - Essential (primary) hypertension, N20.0 - Calculus of kidney Sodium, 24Hr Urine Group Today I10 - Essential (primary) hypertension, N20.0 - Calculus of kidney Creatinine, 24 Hr Group Today I10 - Essential (primary) hypertension, N20.0 - Calculus of kidney Uric Acid, 24Hr Urine Group Today I10 - Essential (primary) hypertension, N20.0 - Calculus of kidney Citric Acid 24hr Urine Today I10 - Essential (primary) hypertension, N20.0 - Calculus of kidney Urine Cytology Today R31.9 - Hematuria, unspecified Basic Metabolic Panel Today I10 - Essential (primary) hypertension, N20.0 - Calculus of kidney Calcium, 24 Hr Ur Today I10 - Essential (primary) hypertension, N20.0 - Calculus of kidney Oxalate, 24 Hr Today I10 - Essential (primary) hypertension, N20.0 - Calculus of kidney Medications: Refilled allopurinol 100 mg PO DAILY 90 tabs 4RF amlodipine-benazepril 5-20 mg 1 cap PO DAILY 30 caps 11RF Coding Level of Care Code Est Pt Level 4 (61457) Diagnoses HTN (hypertension) I10 Kidney stones N20.0 Gout M10.9
--- OUTSIDE RECORDS SUMMARY | 2025-01-07 09:47 | XMS_ITS | Encounter Summary ---
Author Organization [facility] Address [address] [facility] [address] [place] [address] Phone Care Team Providers Care Outdoor Landscape Architect Name Role Phone Primo Delacruz MD Primary Care Provider Reason for Visit * Reason Comments Med Refill Encounter Details Date Type Department Care Team (Late st Contact Info) Description 07/05/2024 Refill [facility] [address] [place] [phone] Matty Steve MD [address] [facility] [address] [place] [address] Social History Tobacco Use Types [...] on filedocumented in this encounter Care Teams Outdoor Landscape Architect Relationship Specialty Start Date End Date Primo Delacruz MD [address] [facility] [address] [place] [address] PCP - General Family Medicine 01/08/22 documented as of this encounter
--- OUTSIDE RECORDS SUMMARY | 2025-01-07 09:47 | XMS_ITS | Clinical Summary ---
Author Organization [facility] Address [address] [place] [address] Care Team Providers Care Full Stack Engineer Name Role Phone Primo Delacruz MD Primary Care Provider [phone] Allergies Active Allergy Reactions Criticality Noted Date [...] 01/10/2023 Hemorrhoid 06/23/2012 01/10/2023 Gout 07/29/2010 01/10/2023 Immunizations Immunization Administration Dates Next Due PPD [...] Health Maintenance Due Date Last Done Comments Colorectal Cancer Screening: Annual FOBT 2007 Colorectal Cancer Screening: Colonoscopy 2007 Colorectal Cancer Screening: Sigmoidoscopy 2007 Pneumococcal Vaccine: 50+ Ye ars (1 of 1 - PCV) 02/14/2008 Influenza Vaccine (#1) 2024 Hepatitis B Vaccine Aged Out No longe r eligible based on patient's age to complete this topic Insurance [facility] Care Teams Full Stack Engineer Relationship Specialty Start Date End Date Primo Delacruz MD [address] [phone] PCP - General Family Medicine 01/08/22
== END 2025-01-07 09:44 | disposition home or self-care (01) ==
LOC: HO.HKA 09:02
PROVIDERS: PCP Family Medicine; Visit Provider Internal Medicine Hypertension Specialist
DX: I10 Essential (primary) hypertension (principal); N20.0 Calculus of kidney; M10.9 Gout, unspecified
CPT/HCPCS: 99214

== ENCOUNTER 2025-01-07 09:02 | Outpatient (REF) | payer OTHER, SELFPAY | END 2025-01-07 09:03 | disposition home or self-care (01) | LOC: HO.LNP 09:02 | PROVIDERS: PCP Family Medicine; Visit Provider Internal Medicine Hypertension Specialist | DX: I10 Essential (primary) hypertension (principal); N20.0 Calculus of kidney; M10.9 Gout, unspecified; Z79.899 Other long term (current) drug therapy | CPT/HCPCS: 82365 ==

== ENCOUNTER 2025-02-02 07:31 | Outpatient (REF) | payer OTHER, SELFPAY ==
--- NOTE | ~2025-02-02 | US_ITS ---
CLINICAL HISTORY: N20.0 - Calculus of kidney US Renal Comparison: US/SR - US KIDNEY BILATERAL - 03/09/22 09:42 EST Findings: The right kidney measures 10.5 x 5.3 x 4.9 cm. Nearly 7 mm cortical cyst in the mid polar region. There are a couple of nonobstructive right intrarenal stones, the largest in the upper polar region measuring nearly 9 mm. There is no hydronephrosis. The left kidney measures 11.5 x 4.7 x 4.2 cm. There are a couple of cortical cysts, the largest in the mid polar region measuring nearly 18 mm. Nearly 6 mm nonobstructive intrarenal stone in the lower polar region. There is no hydronephrosis. IMPRESSION: No acute sonographic abnormality in the bilateral kidneys. Small bilateral nonobstructive intrarenal stones as noted. Small bilateral cortical renal cysts as noted. This document has been electronically signed by: Alexis Klein MD on 02/02/2025 10:04:17
== END 2025-02-02 07:32 | disposition home or self-care (01) ==
LOC: HO.US 07:31
PROVIDERS: PCP Family Medicine; Visit Provider Psychiatry & Neurology Neurology
DX: N20.0 Calculus of kidney (principal); I10 Essential (primary) hypertension
CPT/HCPCS: 76775

== ENCOUNTER → 2025-02-02 07:34 | Outpatient (BNV) | payer OTHER, SELFPAY | PROVIDERS: PCP Family Medicine; Visit Provider Radiology Diagnostic Radiology | DX: N20.0 Calculus of kidney (principal); N28.1 Cyst of kidney, acquired | CPT/HCPCS: 76775 ==

== ENCOUNTER 2025-04-02 09:05 | Outpatient (AMB) | payer OTHER, SELFPAY ==
--- NOTE | 2025-04-02 09:33 | A.OFFVIS_ITS ---
Intake Visit Reasons: Kidney stones (set)UA) Intake Note: Reason for Visit: New Patient Kidney Stones Urology Meds: None Blood Thinners: None Labs: Last PSA: 2.05(2022) Imaging: Renal US 02/02/2025 Last PVR: None Family History: Prostate Cancer? No Bladder Cancer? No Kidney Cancer? No Smoking History? Never Previous Urology? no sees a kidney doctorqs Ergonomics Technician Required: No Transmission Assembler: Transmission Assembler Present Accompanied by: Spouse Allergies No Known Allergies Allergy (Verified 04/02/25 09:34) Medication List - Last Reconciled 04/02/25 by Nneka Alvarado MD allopurinol 100 mg PO DAILY amlodipine-benazepril 5-20 mg 1 cap PO DAILY ketorolac 10 mg PO Q8H PRN ondansetron HCl 4 mg PO Q6H PRN HPI Comments Details: 04/02/25-- History of Present Illness The patient is a 65 year old male presenting for evaluation and management of bilateral nephrolithiasis. He was referred by his sap bw consultant, Dr. Greenberg. In September, the patient experienced an episode of severe pain and passed a kidney stone. He presented to the emergency room, where a CT scan was performed, and he was given Toradol and discharged, though he remained in pain before the stone finally passed. A subsequent ultrasound on 02/02/25, ordered by his sap bw consultant, revealed stones in both kidneys. He currently experiences intermittent discomfort while sitting and sleeping. His current medications include allopurinol 100 mg and a combination of amlodipine/benazepril for hypertension. He denies taking aspirin. Results - Renal Ultrasound (02/02/25): Bilateral nonobstructive intrarenal stones noted. - CT Scan (09/19/24): Showed the patient was passing a 5-6 mm right ureteral stone and had multiple stones in both kidneys, with the larger stone 9mm on the right. Plan Bilateral Nephrolithiasis - right-sided Extracorporeal Shock Wave Lithotripsy (ESWL). Discussed risks to include but not limited to, blood in the urine, bruising to the skin, kidney hematoma, possible need for another procedure if a stone frag ment obstructs the ureter while passing, possible need to repeat procedure if stone is not completely fragmented. [facility] Medical History Anxiety Hx of degenerative disc disease Hemorrhoids with complication Anal fistula HTN (hypertension) Gout Kidney stones Surgical History H/O hemorrhoidectomy (06/29/22) Hx of colonoscopy Hx of lithotripsy History of back surgery Social History Housing: House Are you a primary day care center director to a significant other at home: No Do you presently have visiting nurse or other home services: No Alcohol intake: never Patient Tobacco Use Status: Never used Tobacco e-Cigarette/Vaping Use: Never Used Second Hand Smoke Exposure: No Current occupational status: retired Current occupational exposures/hazards: No Cognitive needs: No Hearing needs: No Vision needs: No Review of Systems Const All systems reviewed & are unremarkable except as noted in HPI and below Reports no additional complaints Eyes Reports no additional complaints ENT Reports no additional complaints Card Reports no additional complaints Resp Reports no additional complaints GI Reports no additional complaints Reports as per HPI Musc Reports no additional complaints Skin/Breast Reports system reviewed and no additional complaints, except as documented Neuro Reports no additional complaints Psych Reports no additional complaints Endo Reports no additional complaints Kye/Lymph Reports no additional complaints Aller/Immun Reports no additional complaints Physical Exam Const General: healthy appearing, no acute distress and well developed Orientation/consciousness: patient oriented x3 HEENT Head: Yes normocephalic and Yes atraumatic Eyes Conjunctivae: conjunctivae normal Neck Neck: Yes normal visual inspection Chest Chest palpation & inspection: normal inspection of the chest Resp Effort & Inspection: normal respiratory effort GI Inspection: Yes normal to inspection Neuro General: patient oriented x3 Psych Appearance: grossly normal Affect: normal affect Results AMB Urinalysis, Automated UA Leukoctes 0 Burt/uL Last Edit by YASHIRA Oliver on 04/02/25 09:39 UA Nitrite Negative Last Edit by YASHIRA Oliver on 04/02/25 09:39 UA Urobilinogen 0.2 mg/dL Last Edit by YASHIRA Oliver on 04/02/25 09:3 9 UA Protein 0 mg/dL Last Edit by YASHIRA Oliver on 04/02/25 09:39 UA pH 6.0 Last Edit by Maribel López, RMA on 04/02/25 09:39 UA Blood 0 Paul/uL Last Edit by Maribel López, RMA on 04/02/25 09:39 UA Specific [place] 1.020 Last Edit by Maribel López, RMA on 04/02/25 09: 39 UA Ketone Negative Last Edit by Maribel López, RMA on 04/02/25 09:39 UA Bilirubin 0 mg/dL Last Edit by Maribel López, RMA on 04/02/25 09:39 UA Glucose 0 mg/dL Last Edit by Maribel López, RMA on 04/02/25 09:39 Results Reviewed Results Reviewed: Laboratory Last Values Urine pH (Auto) 6.0 04/02/25 09:35 Specific [place] (Auto) 1.020 04/02/25 09:35 Urine Protein (Auto) 0 mg/dL 04/02/25 09:35 Glucose (UA)(Auto) 0 mg/dL 04/02/25 09:35 Urine Ketones (Auto) Negative 04/02/25 09:35 Urine Blood (Auto) 0 Paul/uL 04/02/25 09:35 Urine Nitrite (Auto) Negative 04/02/25 09:35 Urine Bilirubin (Auto) 0 mg/dL 04/02/25 09:35 Urine Urobilinogen (Auto) 0.2 mg/dL 04/02/25 09:35 Leukocyte Esterase (Auto) 0 Burt/uL 04/02/25 09:35 Date of Service: 02/02/25 CLINICAL HISTORY: N20.0 - Calculus of kidney US Renal Comparison: US/SR - US KIDNEY BILATERAL - 03/09/22 09:42 EST Findings: The right kidney measures 10.5 x 5.3 x 4.9 cm. Nearly 7 mm cortical cyst in the mid polar region. There are a couple of nonobstructive right intrarenal stones, the largest in the upper polar region measuring nearly 9 mm. There is no hydronephrosis. The left kidney measures 11.5 x 4.7 x 4.2 cm. There are a couple of cortical cysts, the largest in the mid polar region measuring nearly 18 mm. Nearly 6 mm nonobstructive intrarenal stone in the lower polar region. There is no hydronephrosis. IMPRESSION: No acute sonographic abnormality in the bilateral kidneys. Small bilateral nonobstructive intrarenal stones as noted. Small bilateral cortical renal cysts as noted. Date of Service: 09/19/24 CLINICAL HISTORY: R flank pain CT Abdomen and Pelvis WO Contrast COMPARISON: None FINDINGS: Detail limited by artifacts. Small hiatal hernia. Diffusely hypodense liver consistent with hepatic steatosis. Hepatomegaly. Normal spleen. Calculus in the mid to distal right ureter measuring 6 mm. Mild right hydronephrosis. Nonobstructing bilateral renal calculi. Normal adrenal glands. Calcification in the pancreatic neck, which could be due to chronic pancreatitis. No evidence of acute pancreatitis. No visible cholelithiasis. No biliary dilation. Mild colonic diverticulosis without evidence of acute diverticulitis. No mucosal thickening. No evidence of obstruction. Normal appendix. Unremarkable bladder. Mildly enlarged prostate. No ascites. No pneumoperitoneum. No lymphadenopathy. No acute fracture. Status post posterior L4-S1 fusion and discectomies. Degenerative changes in the spine. No abdominal aortic aneurysm. IMPRESSION: Right ureteral calculus. Mild right hydronephrosis. Nonemergent/incidental findings above. Assessment & Plan Assessment & Plan (1) Bilateral kidney stones: Code(s): N20.0 - Calculus of kidney Category: Medical Plan Plan Bilateral Nephrolithiasis - right-sided Extracorporeal Shock Wave Lithotripsy (ESWL). Discussed risks to include but not limited to, blood in the urine, bruising to the skin, kidney hematoma, possible need for another procedure if a stone fragment obstructs the ureter while passing, possible need to repeat procedure if stone is not completely fragmented. 24 hour urine collection Orders: Orders AMB Urinalysis Automated Today Z13.9 - Encounter for screening, unspecified Patient Instructions: The patient had an opportunity to ask questions regarding treatment plan. The patient expressed understanding and agreement with the above treatment plan. The patient is aware they should contact our office by phone for worsening of their current condition or the appearance of new symptoms. Compliance is encouraged with any medications and followup testing that is ordered. It is a privilege to be allowed the opportunity to participate in the urologic care of your patient. If you have any questions or concerns regarding treatment for the above conditions please do not hesitate to contact me. The office telephone contact is [phone]. This note is constructed in part using voice recognition software. While every effort has been made to ensure accuracy sales intern errors may have been inc luded. Yours sincerely, Nneka Alvarado MD Scribe Plan - Not visible on output: Patient was informed and verbally consented to the use of an ambient scribe for clinic note documentation during this visit. Coding Level of Care Code New Pt Level 4 (77241) Diagnoses Bilateral kidney stones N20.0
== END 2025-04-02 10:18 | disposition home or self-care (01) ==
PROVIDERS: PCP Family Medicine; Visit Provider Urology
DX: Z13.9 Encounter for screening, unspecified (principal); N20.0 Calculus of kidney
CPT/HCPCS: 99204

== ENCOUNTER → 2025-04-02 09:05 | Outpatient (BNVA) | payer OTHER, SELFPAY | PROVIDERS: PCP Family Medicine; Visit Provider Urology | DX: N13.2 Hydronephrosis with renal and ureteral calculous obstruction (principal) | CPT/HCPCS: 81003 ==